=== PATIENT | male | born 1970 | race Caucasian/White ===

== ENCOUNTER 2018-04-11 17:20 | Inpatient (IN) | payer MEDICAID ==
[2018-04-11] MEDS ORDERED: Sodium Chloride 0.9% 1,000 ML IV ONE (17:49)
--- NOTE | 2018-04-11 17:50 | C.PDOC ---
Time Seen by Provider: 04/11/18 17:42 Chief Complaint (Nursing): Abnormal Skin Integrity Past Medical History Vital Signs: Last Vital Signs Temp 97.5 F L 04/11/18 17:44 Pulse 134 H 04/11/18 17:44 Resp 20 04/11/18 17:44 BP 91/59 L 04/11/18 17:44 Pulse Ox 100 04/11/18 17:44 - Medical History PMH: Fractures (left lower extremity.) Denies: Chronic Kidney Disease - [facility] Procedures CENTRAL VENOUS CATHETER PLACEMENT WITH GUIDANCE (04/13/14) INJECT/INFUSE NEC (04/09/14) TETANUS TOXOID ADMINIST (04/03/14) Family History: States: Unknown Family Hx - Social History Hx Tobacco Use: No Hx Alcohol Use: No Hx Substance Use: No - Immunization History Hx Tetanus Toxoid Vaccination: No Hx Influenza Vaccination: No Hx Pneumococcal Vaccination: No ED Course And Treatment O2 Sat by Pulse Oximetry: 100 Disposition - Disposition
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
[2018-04-11] MEDS ORDERED: Vancomycin 1 gm/NS 200 ml 1 GM/200 ML BAG IVPB STA (18:02)
[2018-04-11] MEDS ORDERED: Aztreonam 2 GM in Sodium Chloride 0.9% 100 ML IVPB STA (18:08)
[2018-04-11] MEDS ORDERED: Morphine 4 MG/ML VIAL ONE (19:27)
[2018-04-11 19:39] LABS: BASO % 0.2 % (0.0-2.0); HEMOGLOBIN 7.4 g/dL (12.0-18.0); LYMPH % 5.9 % (20.0-40.0); MEAN CELL VOLUME 75.5 fL (80.0-94.0); MEAN CORPUSCULAR HEMOGLOBIN 23.5 pg (27.0-31.0); MEAN CORPUSCULAR HGB CONC 31.1 g/dL (33.0-37.0); MEAN PLATELET VOLUME 6.2 fL (7.2-11.7); MONO # 1.1 K/uL (0.0-0.8); MONO % 6.4 % (0.0-10.0); NEUT # 14.5 K/uL (1.8-7.0); NEUT % 87.5 % (50.0-75.0); NRBC % 0.1 % (0.0-2.0); PLATELET COUNT 494 K/uL (130-400); RBC 3.15 Mil/uL (4.40-5.90); RED CELL DISTRIBUTION WIDTH 22.4 % (11.5-14.5); WHITE BLOOD COUNT 16.5 K/uL (4.8-10.8)
[2018-04-11 19:47] LABS: INR 1.6; PROTHROMBIN TIME 17.2 SECONDS (9.7-12.2)
[2018-04-11 19:48] LABS: VENOUS BLOOD GAS BASE EXCESS -13.5 mmol/L (0.0-2.0); VENOUS BLOOD GAS PCO2 18 mmHg (40-60); VENOUS BLOOD GAS PO2 40 mm/Hg (30-55); VENOUS BLOOD PH 7.34 (7.32-7.43)
[2018-04-11] MEDS ORDERED: Lactated Ringer's 2,000 ML ONE (19:48)
[2018-04-11 19:49] LABS: ALB/GLOB RATIO 0.6 (1.0-2.1); ALBUMIN 2.2 g/dL (3.5-5.0); CALCIUM 7.1 mg/dl (8.6-10.4)
[2018-04-11 20:02] LABS: ANISOCYTOSIS MODERATE; BANDS 4 % (0-2); LYMPHOCYTE 6 % (20-40); MONOCYTE 5 % (0-10); NEUTROPHIL 85 % (50-75); PLATELET ESTIMATE SLIGHTLY INCREASED (NORMAL); POLYCHROMIC SLIGHT; ROULEAUX FORMATION MODERATE; TOTAL CELLS COUNTED 100
[2018-04-11 20:03] LABS: MICROCYTOSIS MODERATE; OVALOCYTES SLIGHT
[2018-04-11 20:42] LABS: SQUAMOUS EPITHIAL 11 /hpf (0-5); URINE BACTERIA FEW (<OCC); URINE BILIRUBIN NEGATIVE (NEGATIVE); URINE BLOOD 1+ (NEGATIVE); URINE CLARITY Turbid (Clear); URINE COLOR Amber (YELLOW); URINE GLUCOSE (UA) NORMAL (Normal); URINE LEUKOCYTE ESTERASE 3+ Leu/uL (Negative); URINE PROTEIN 2+ mg/dL (NEGATIVE); URINE UROBILINOGEN NORMAL mg/dL (0.2-1.0)
[2018-04-11] MEDS: Dextrose 5%/0.9% NS 1,000 ML IV SCH (21:00)
[2018-04-11] MEDS ORDERED: Dextrose 5%/0.9% NS 1,000 ML IV ONE (21:07)
[2018-04-11] MEDS ORDERED: Sodium Chloride 0.9% 1,000 ML ONE (21:07)
[2018-04-11 21:48] LABS: VENOUS BLOOD GAS BASE EXCESS -10.1 mmol/L (0.0-2.0); VENOUS BLOOD GAS PCO2 26 mmHg (40-60); VENOUS BLOOD GAS PO2 39 mm/Hg (30-55); VENOUS BLOOD PH 7.34 (7.32-7.43)
[2018-04-11] MEDS: HYDROmorphone 1 mg/ml ISec IVP PRN (23:13)
[2018-04-12] MEDS: Dextrose 5%/0.9% NS 1,000 ML IV SCH ×3 (05:07→21:13)
[2018-04-12] MEDS: HYDROmorphone 1 mg/ml ISec IVP PRN ×3 (07:44→23:34)
[2018-04-12 14:14] LABS: MEAN CELL VOLUME 76.4 fL (80.0-94.0); MONO # 0.7 K/uL (0.0-0.8)
[2018-04-12 14:27] LABS: BLOOD UREA NITROGEN 34 mg/dL (9-20); GFR AFRICAN-AMERICAN > 60; GFR NON-AFRICAN AMERICAN 51
[2018-04-12 14:35] LABS: BASO % 0.1 % (0.0-2.0); EOS # 0.1 K/uL (0.0-0.7); EOS % 0.6 % (0.0-4.0); LYMPH % 10.6 % (20.0-40.0); MEAN CORPUSCULAR HGB CONC 31.4 g/dL (33.0-37.0); MEAN PLATELET VOLUME 6.3 fL (7.2-11.7); MONO % 8.1 % (0.0-10.0); NEUT # 7.3 K/uL (1.8-7.0); NEUT % 80.6 % (50.0-75.0); RBC 2.57 Mil/uL (4.40-5.90); RED CELL DISTRIBUTION WIDTH 22.4 % (11.5-14.5)
[2018-04-12 14:38] LABS: HEMOGLOBIN 6.2 g/dL (12.0-18.0)
--- NOTE | 2018-04-12 16:25 | RAD ---
HISTORY: Sepsis Patient COMPARISON: Comparison made with chest radiograph dated the 04/11/2018 No prior. FINDINGS: Interval placement right IJ central venous line with tip in the apparently in the right atrium LUNGS: Low lung volumes with mild crowded bronchovascular markings and minor the bibasilar atelectasis [id number] elevation right hemidiaphragm could be due to eventration. PLEURA: No significant pleural effusion identified, no pneumothorax apparent. CARDIOVASCULAR: Normal. OSSEOUS STRUCTURES: No significant abnormalities. VISUALIZED UPPER ABDOMEN: Normal. OTHER FINDINGS: None. IMPRESSION: Low lung volumes with mild crowded bronchovascular markings and minor the bibasilar atelectasis [id number] elevation right hemidiaphragm could be due to eventration. . Right IJ central venous line with tip in the right atrium
--- NOTE | 2018-04-12 16:29 | RAD ---
HISTORY: Sepsis Patient COMPARISON: No prior. FINDINGS: LUNGS: Low lung volumes with mild crowded bronchovascular markings and minor the bibasilar atelectasis [id number] elevation right hemidiaphragm could be due to eventration. PLEURA: No significant pleural effusion identified, no pneumothorax apparent. CARDIOVASCULAR: Normal. OSSEOUS STRUCTURES: No significant abnormalities. VISUALIZED UPPER ABDOMEN: Normal. OTHER FINDINGS: None. IMPRESSION: Low lung volumes with mild crowded bronchovascular markings and minor the bibasilar atelectasis Zegp-vw-[id number] elevation right hemidiaphragm could be due to eventration.
[2018-04-12] MEDS ORDERED: DiphenhydrAMINE 50 mg/ml Inj IVP STA (19:42)
[2018-04-13] MEDS ORDERED: DiphenhydrAMINE 50 mg/ml Inj IVP STA ×2 (01:43→03:03)
[2018-04-13] MEDS: HYDROmorphone 1 mg/ml ISec IVP PRN ×5 (05:38→21:53)
[2018-04-13] MEDS: Dextrose 5%/0.9% NS 1,000 ML IV SCH ×3 (06:00→22:01)
[2018-04-13 11:13] LABS: BASO % 0.1 % (0.0-2.0); EOS # 0.1 K/uL (0.0-0.7); EOS % 0.4 % (0.0-4.0); LYMPH # 0.8 K/uL (1.0-4.3); MEAN CORPUSCULAR HEMOGLOBIN 25.9 pg (27.0-31.0); MEAN CORPUSCULAR HGB CONC 32.8 g/dL (33.0-37.0); MONO # 0.8 K/uL (0.0-0.8); MONO % 6.7 % (0.0-10.0); NEUT # 10.2 K/uL (1.8-7.0); NEUT % 85.8 % (50.0-75.0); PLATELET COUNT 402 K/uL (130-400); RBC 3.25 Mil/uL (4.40-5.90); RED CELL DISTRIBUTION WIDTH 21.2 % (11.5-14.5); WHITE BLOOD COUNT 11.9 K/uL (4.8-10.8)
[2018-04-13 11:35] LABS: HEMOGLOBIN 8.4 g/dL (12.0-18.0); MEAN CELL VOLUME 78.9 fL (80.0-94.0)
[2018-04-13 12:24] LABS: BANDS 8 % (0-2); EOSINOPHIL 1 % (0-4); LYMPHOCYTE 6 % (20-40); MONOCYTE 8 % (0-10); MYELOCYTE 1 % (0-0); NEUTROPHIL 76 % (50-75); PLATELET ESTIMATE NORMAL (NORMAL); TOTAL CELLS COUNTED 100
[2018-04-13 12:25] LABS: ANISOCYTOSIS MODERATE; HYPOCHROMIC SLIGHT; MICROCYTOSIS SLIGHT; OVALOCYTES SLIGHT; POIKILOCYTOSIS SLIGHT; POLYCHROMIC SLIGHT
[2018-04-13 12:26] LABS: SPHEROCYTES SLIGHT; TEARDROP CELLS SLIGHT
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
[2018-04-14] MEDS: HYDROmorphone 1 mg/ml ISec IVP PRN ×5 (02:03→22:03)
[2018-04-14] MEDS: Dextrose 5%/0.9% NS 1,000 ML IV SCH ×4 (02:32→22:05)
[2018-04-14 07:32] LABS: BASO % 0.1 % (0.0-2.0); EOS # 0.1 K/uL (0.0-0.7); EOS % 1.1 % (0.0-4.0); HEMOGLOBIN 7.8 g/dL (12.0-18.0); LYMPH # 1.4 K/uL (1.0-4.3); LYMPH % 10.7 % (20.0-40.0); MEAN CELL VOLUME 78.7 fL (80.0-94.0); MEAN CORPUSCULAR HEMOGLOBIN 25.6 pg (27.0-31.0); MEAN CORPUSCULAR HGB CONC 32.5 g/dL (33.0-37.0); MEAN PLATELET VOLUME 6.1 fL (7.2-11.7); MONO % 7.8 % (0.0-10.0); NEUT # 10.2 K/uL (1.8-7.0); NEUT % 80.3 % (50.0-75.0); RBC 3.04 Mil/uL (4.40-5.90); WHITE BLOOD COUNT 12.7 K/uL (4.8-10.8)
--- NOTE | 2018-04-14 12:59 | CP.PCM.PN ---
Subjective - Date & Time of Evaluation Date of Evaluation: 04/14/18 Time of Evaluation: 09:00 - Subjective Subjective: MDRO'S FROM WOUND BLOOD C/S + NEEDS CT SACRUM RECC DEBRIDEMENT, CONSIDER COLOSTOMY, TYGACIL ADDED MAY EED ROMARIO Objective - Vital Signs/Intake and Output Vital Signs (last 24 hours): Temp Pulse Resp BP Pulse Ox 99.1 F 109 H 20 86/50 L 96 04/14/18 08:15 04/14/18 08:15 04/14/18 08:15 04/14/18 08:15 04/14/18 08:15 Intake and Output: 04/14/18 04/14/18 06:59 18:59 Intake Total 1600 Output Total 1400 Balance 200 - Medications Medications: Current Medications Heparin Sodium (Porcine) (Heparin) 5,000 units SC Q12H [facility] Last Admin: 04/14/18 10:22 Dose: Not Given Hydromorphone HCl (Dilaudid) 2 mg IVP Q4H PRN PRN Reason: Pain, moderate (4-7) Last Admin: 04/14/18 10:31 Dose: 2 mg Dextrose/Sodium Chloride (Dextrose 5%/0.9% Ns 1000 Ml) 1,000 mls @ 125 mls/hr IV .Q8H [facility] Last Admin: 04/14/18 05:17 Dose: Not Given Aztreonam 500 mg/ Sodium (Chloride) 50 mls @ 100 mls/hr IVPB Q8H [facility] PRN Reason: Protocol Last Admin: 04/14/18 05:18 Dose: 100 mls/hr Tigecycline 100 mg/ Sodium (Chloride) 100 mls @ 100 mls/hr IVPB ONCE ONE PRN Reason: Protocol Stop: 04/14/18 13:59 Tigecycline 50 mg/ Sodium (Chloride) 100 mls @ 100 mls/hr IVPB Q12H [facility] PRN Reason: Protocol - Labs Labs: 04/14/18 07:00 04/12/18 14:12 PT 17.2 SECONDS (9.7-12.2) H 04/11/18 19:30 INR 1.6 04/11/18 19:30 APTT 38 SECONDS (21-34) H 04/12/18 07:58 - Constitutional Appears: Non-toxic, Chronically Ill - Head Exam Head Exam: NORMOCEPHALIC - Eye Exam Eye Exam: PERRL - ENT Exam ENT Exam: Mucous Membranes Dry - Neck Exam Neck Exam: absent: Lymphadenopathy - Respiratory Exam Respiratory Exam: Decreased Breath Sounds - Cardiovascular Exam Cardiovascular Exam: REGULAR RHYTHM - GI/Abdominal Exam GI & Abdominal Exam: Distended, Soft Assessment and Plan (1) Sacral decubitus ulcer, stage IV Status: Acute (2) Cellulitis Status: Acute (3) UTI (urinary tract infection) Status: Acute (4) UTI (urinary tract infection) Status: Acute (5) Sepsis affecting skin Status: Acute (6) Sepsis affecting skin Status: Acute - Assessment and Plan (Free Text) Plan: MDRO'S FROM WOUND NEEDS CT SACRUM RECC DEBRIDEMENT, CONSIDER COLOSTOMY, TYGACIL ADDED MAY EED ROMARIO
[2018-04-14] MEDS ORDERED: Midazolam 2 MG/2 ML VIAL ONE (14:32)
[2018-04-14] MEDS ORDERED: Propofol 10 mg/ml Inj (20 ML) ONE (14:33)
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
--- NOTE | 2018-04-14 16:02 | CARD ---
APPROVED REPORT EKG Measurement Heart [id number] MI [id number] <Conclusion> Sinus tachycardia Incomplete right bundle branch block Borderline ECG
[2018-04-14] MEDS ORDERED: HYDROmorphone 0.5 mg/0.5 ml ISec IVP PRN (16:13)
[2018-04-15] MEDS: HYDROmorphone 1 mg/ml ISec IVP PRN ×6 (02:47→22:17)
[2018-04-15] MEDS: Dextrose 5%/0.9% NS 1,000 ML IV SCH ×3 (02:48→10:08)
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
[2018-04-15 07:28] LABS: BASO % 0.1 % (0.0-2.0); EOS # 0.1 K/uL (0.0-0.7); EOS % 0.8 % (0.0-4.0); HEMOGLOBIN 7.6 g/dL (12.0-18.0); LYMPH # 0.9 K/uL (1.0-4.3); LYMPH % 7.4 % (20.0-40.0); MEAN CELL VOLUME 78.6 fL (80.0-94.0); MEAN CORPUSCULAR HEMOGLOBIN 25.8 pg (27.0-31.0); MEAN CORPUSCULAR HGB CONC 32.8 g/dL (33.0-37.0); MEAN PLATELET VOLUME 6.2 fL (7.2-11.7); MONO # 0.7 K/uL (0.0-0.8); MONO % 5.8 % (0.0-10.0); NEUT # 10.8 K/uL (1.8-7.0); NEUT % 85.9 % (50.0-75.0); PLATELET COUNT 331 K/uL (130-400); RBC 2.96 Mil/uL (4.40-5.90); RED CELL DISTRIBUTION WIDTH 20.7 % (11.5-14.5); WHITE BLOOD COUNT 12.6 K/uL (4.8-10.8)
--- NOTE | 2018-04-15 07:38 | CP.PCM.PN ---
Subjective - Date & Time of Evaluation Date of Evaluation: 04/15/18 Time of Evaluation: 07:37 - Subjective Subjective: PGY2 Medicine Note for Dr. Nieves Patient seen and examined this morning at bedside. Upon walking into the room, the patient was sleeping. The patient was awoken easily. Once awake, he was very upset stating that his pain is not well controlled. He began tearing up requesting that his dilaudid be increased from 2mg every 4 hours to 3mg every 4 hours. "I used to get 4 mg every 4 hours. I have serious problems. I need more pain medicine." He then threatened to leave against medical advice if he does not get more pain medicine. He would not answer any questions unless he got more pain medicine. Objective - Vital Signs/Intake and Output Vital Signs (last 24 hours): Temp Pulse Resp BP Pulse Ox 98 F 82 20 100/65 99 04/15/18 05:12 04/15/18 05:12 04/15/18 05:12 04/15/18 05:12 04/15/18 05:12 Intake and Output: 04/15/18 04/15/18 06:59 18:59 Intake Total 1750 Output Total 750 Balance 1000 - Medications Medications: Current Medications Heparin Sodium (Porcine) (Heparin) 5,000 units SC Q12H [facility] Last Admin: 04/14/18 21:17 Dose: Not Given Hydromorphone HCl (Dilaudid) 2 mg IVP Q4H PRN PRN Reason: Pain, moderate (4-7) Last Admin: 04/15/18 06:31 Dose: 2 mg Dextrose/Sodium Chloride (Dextrose 5%/0.9% Ns 1000 Ml) 1,000 mls @ 125 mls/hr IV .Q8H [facility] Last Admin: 04/15/18 05:15 Dose: Not Given Aztreonam 500 mg/ Sodium (Chloride) 50 mls @ 100 mls/hr IVPB Q8H [facility] PRN Reason: Protocol Last Admin: 04/15/18 05:22 Dose: 100 mls/hr Tigecycline 50 mg/ Sodium (Chloride) 100 mls @ 100 mls/hr IVPB Q12H [facility] PRN Reason: Protocol Last Admin: 04/15/18 00:19 Dose: 100 mls/hr - Labs Labs: 04/15/18 07:30 04/12/18 14:12 PT 17.2 SECONDS (9.7-12.2) H 04/11/18 19:30 INR 1.6 04/11/18 19:30 APTT 38 SECONDS (21-34) H 04/12/18 07:58 - Constitutional Appears: No Acute Distress - Head Exam Head Exam: ATRAUMATIC - Eye Exam Eye Exam: Normal appearance - ENT Exam ENT Exam: Mucous Membranes Moist - Neck Exam Neck Exam: absent: Lymphadenopathy - Respiratory Exam Respiratory Exam: Decreased Breath Sounds, NORMAL BREATHING PATTERN. absent: Accessory Muscle Use, Rales, Rhonchi, Wheezes, Respiratory Distress - Cardiovascular Exam Cardiovascular Exam: Tachycardia (~110 on telemetry), +S1, +S2 - GI/Abdominal Exam GI & Abdominal Exam: Soft. absent: Distended, Firm, Guarding, Rigid, Tenderness Additional comments: colostomy bag in place - Extremities Exam Extremities Exam: absent: Calf Tenderness Additional comments: Left leg AKA - Back Exam Additional comments: Dressing in place over buttock/lower right back. - Neurological Exam Neurological Exam: Alert, Awake, CN II-XII Intact, Oriented x3 - Psychiatric Exam Psychiatric exam: Agitated Additional comments: tearing up while requesting more pain medicine. - Skin Skin Exam: Dry, Warm Assessment and Plan - Assessment and Plan (Free Text) Plan: Sepsis 2/2 Sacral Decubitus Ulcer ID Consulted, Dr. Varghese * abx per ID * Azreonam 500mg IVPB q8h (started on 04/12) * Tigecycline 50mg IVPB (started on 04/14) * Tobramycin 60mg IV q8h (started on 04/15) Surgery Consulted, Dr. Kim * Scheduled for debridement this afternoon CXR 04/11: Low lung volumes with mild crowded bronchovascular markings and minor bibasilar atelectasis. [id number] elevation of right hemidiaphragm could be due to eventration. Right IJ central venous line with tip in the right atrium. Sacral Wound Culture 04/11: grew 4 bacteria * E. Coli * Klebsiella Pneumoniae Ssp Pneu - ESBL * MRSA * Group G Strep Urine Culture 04/11: grew 2 bacteria * E. Coli * Beta hemolytic Strep group B Blood Cultures 04/12: Culture #1 * Acinetobacter Baumannii * Group G Strep Culture #2 * Acinetobacter Baumannii * Gram Positive Cocci * Group G Strep Wound Culture from OR 04/14: * Gram Neg Jean-Paul * Gram Neg Jean-Paul #2 Procal (04/14): 17.24 Lactic Acid (04/12): 1.6 Meds: * Azreonam 500mg IVPB q8h (started on 04/12) * Tigecycline 50mg IVPB q12h (started on 04/14) * Tobramycin 60mg IV q8h (started on 04/15) * Dilaudid 2mg IVP q4h prn * Patient was informed that he is not getting his pain medicine increased. He got very upset and demanded that Dr. Nieves be called and asked a second time for an increase in medication. Dr. Nieves stated that he does not want to increase any pain medicine at this time. * D5/NS @125mL/hr - decreased to 75mL/hr due to large amounts of electrolytes being repleted Anemia Upon admission 7.4 Dropped to 6.2 on 04/12 - transfused 2units of pRBCs Downtrending to 7.6 on 04/15 * transfuse one unit of pRBCs Continue to monitor Hypokalemia K+ 1.9 Repleted with 40meq orally and 100meq IV Continue to monitor Hypomagnesmia Mag 1.2 Repleted with 2 gm Continue to monitor Prophylactic Care Heparin 5,000units SC q12h Case discussed with Dr. Nieves All medical management per Dr. Lizbeth Nortonn PGY2
[2018-04-15 08:10] LABS: ALB/GLOB RATIO 0.5 (1.0-2.1); ALBUMIN 1.6 g/dL (3.5-5.0); ALT/SGPT 23 U/L (21-72); AST/SGOT 22 U/L (17-59); BLOOD UREA NITROGEN 17 mg/dL (9-20); CALCIUM 6.2 mg/dl (8.6-10.4); GFR AFRICAN-AMERICAN > 60; GFR NON-AFRICAN AMERICAN > 60
[2018-04-15 09:54] LABS: ALB/GLOB RATIO 0.5 (1.0-2.1); ALBUMIN 1.5 g/dL (3.5-5.0); ALT/SGPT 23 U/L (21-72); AST/SGOT 18 U/L (17-59); BLOOD UREA NITROGEN 16 mg/dL (9-20); CALCIUM 6.2 mg/dl (8.6-10.4); GFR AFRICAN-AMERICAN > 60; GFR NON-AFRICAN AMERICAN > 60
[2018-04-15 10:07] LABS: ANISOCYTOSIS MODERATE; BANDS 5 % (0-2); EOSINOPHIL 1 % (0-4); LYMPHOCYTE 6 % (20-40); MONOCYTE 3 % (0-10); NEUTROPHIL 85 % (50-75); PLATELET ESTIMATE NORMAL (NORMAL); TOTAL CELLS COUNTED 100
[2018-04-15 10:15] LABS: HYPOCHROMIC MODERATE
--- NOTE | 2018-04-15 10:43 | CP.PCM.PN ---
Subjective - Date & Time of Evaluation Date of Evaluation: 04/15/18 Time of Evaluation: 07:00 - Subjective Subjective: acinetobacter on blood c/s iv tygacil added Objective - Vital Signs/Intake and Output Vital Signs (last 24 hours): Temp Pulse Resp BP Pulse Ox 99.0 F 115 H 20 113/73 100 04/15/18 07:50 04/15/18 07:50 04/15/18 07:50 04/15/18 07:50 04/15/18 07:50 Intake and Output: 04/15/18 04/15/18 06:59 18:59 Intake Total 1750 Output Total 750 Balance 1000 - Medications Medications: Current Medications Heparin Sodium (Porcine) (Heparin) 5,000 units SC Q12H [facility] Last Admin: 04/15/18 10:03 Dose: Not Given Hydromorphone HCl (Dilaudid) 2 mg IVP Q4H PRN PRN Reason: Pain, moderate (4-7) Last Admin: 04/15/18 09:58 Dose: 2 mg Dextrose/Sodium Chloride (Dextrose 5%/0.9% Ns 1000 Ml) 1,000 mls @ 125 mls/hr IV .Q8H [facility] Last Admin: 04/15/18 10:08 Dose: 125 mls/hr Aztreonam 500 mg/ Sodium (Chloride) 50 mls @ 100 mls/hr IVPB Q8H [facility] PRN Reason: Protocol Last Admin: 04/15/18 05:22 Dose: 100 mls/hr Tigecycline 50 mg/ Sodium (Chloride) 100 mls @ 100 mls/hr IVPB Q12H [facility] PRN Reason: Protocol Last Admin: 04/15/18 00:19 Dose: 100 mls/hr Potassium Chloride (Potassium Chloride 20 Meq/100 Ml) 20 meq in 100 mls @ 50 mls/hr IVPB ONCE ONE Stop: 04/15/18 11:59 Last Admin: 04/15/18 10:02 Dose: 50 mls/hr Potassium Chloride (Potassium Chloride 20 Meq/100 Ml) 20 meq in 100 mls @ 50 mls/hr IVPB Q2H [facility] Stop: 04/15/18 19:59 - Labs Labs: 04/15/18 07:30 04/15/18 08:57 PT 17.2 SECONDS (9.7-12.2) H 04/11/18 19:30 INR 1.6 04/11/18 19:30 APTT 38 SECONDS (21-34) H 04/12/18 07:58 - Constitutional Appears: Non-toxic - Head Exam Head Exam: NORMOCEPHALIC - Eye Exam Eye Exam: PERRL - ENT Exam ENT Exam: Mucous Membranes Dry - Neck Exam Neck Exam: absent: Lymphadenopathy - Respiratory Exam Respiratory Exam: Decreased Breath Sounds - Cardiovascular Exam Cardiovascular Exam: REGULAR RHYTHM - GI/Abdominal Exam GI & Abdominal Exam: Distended - Rectal Exam Rectal Exam: Deferred Assessment and Plan (1) Sacral decubitus ulcer, stage IV Status: Acute (2) Cellulitis Status: Acute (3) UTI (urinary tract infection) Status: Acute (4) UTI (urinary tract infection) Status: Acute (5) Sepsis affecting skin Status: Acute (6) Sepsis affecting skin Status: Acute
[2018-04-15] MEDS ORDERED: Potassium Chloride 20 mEq ER Tab PO STA ×2 (11:00→12:14)
[2018-04-15 14:49] LABS: CALCIUM 6.2 mg/dl (8.6-10.4)
[2018-04-15 14:59] LABS: BLOOD UREA NITROGEN 15 mg/dL (9-20); GFR AFRICAN-AMERICAN > 60; GFR NON-AFRICAN AMERICAN > 60
[2018-04-15] MEDS ORDERED: Potassium Chloride 20 mEq 100 ML IV ONE (15:15)
[2018-04-15] MEDS ORDERED: Midazolam 2 MG/2 ML VIAL ONE (15:20)
[2018-04-15] MEDS ORDERED: Propofol 10 mg/ml Inj (20 ML) ONE (15:20)
[2018-04-15] MEDS: Tobramycin inj 60 MG in Sodium Chloride 0.9% 100 ML IV SCH ×2 (15:25→19:52)
[2018-04-15] MEDS: Magnesium Sulfate 1 gm in D5W 1 GM/100 ML BAG IVPB SCH ×2 (15:28→16:29)
[2018-04-15] MEDS ORDERED: Vancomycin 1 gm/D5W 200 ml 1 GM/200 ML BAG IVPB ONE (15:55)
[2018-04-15] MEDS ORDERED: HYDROmorphone 0.5 mg/0.5 ml ISec IVP PRN (16:15)
[2018-04-16] MEDS: Dextrose 5%/0.9% NS 1,000 ML IV SCH ×2 (01:08→10:48)
[2018-04-16] MEDS: HYDROmorphone 1 mg/ml ISec IVP PRN ×5 (02:44→21:34)
--- NOTE | 2018-04-16 03:19 | OP ---
PROCEDURE DATE: 04/15/2018 PREOPERATIVE DIAGNOSIS: Extensive soft tissue necrosis and decubitus, sacral and buttock area. POSTOPERATIVE DIAGNOSIS: Extensive soft tissue necrosis and decubitus, sacral and buttock area. PROCEDURES PERFORMED: 1. Incision and drainage of osteomyelitis. 2. Excision of sacral polyp. 3. Extensive debridement of open wound, back, sacral, and buttock area. SURGEON: Prasanth Kim MD ANESTHESIA: General. BLOOD LOSS: 40 mL. POSTOPERATIVE CONDITION: Stable. DESCRIPTION OF PROCEDURE: The patient was taken back to the operating room for staged procedure. He has a large open posterior wound which is infected. Today, he underwent further debridement. Sacral polyps were removed as well as incision and drainage of a new area of osteomyelitis. Bone biopsies were taken. The wound was pulse irrigated and then packed with saline gauze. The patient tolerated the procedure well and returned to recovery room in stable condition. Prasanth Kim MD
[2018-04-16] MEDS: Tobramycin inj 60 MG in Sodium Chloride 0.9% 100 ML IV SCH ×4 (04:03→19:10)
--- NOTE | 2018-04-16 07:04 | CP.PCM.PN ---
Subjective - Date & Time of Evaluation Date of Evaluation: 04/16/18 Time of Evaluation: 07:04 - Subjective Subjective: PGY2 Medicine Note for Dr. Nieves Patient seen and examined at bedside this morning. Patient requested sleeping medicine last night as he was having difficulty falling asleep. Patient is still upset about not getting an increase in his pain medicine. He refused some of his potassium supplementation yesterday. He is stating that he wants an increase in his pain medicine again. He is currently NPO for surgery this afternoon. Objective - Vital Signs/Intake and Output Vital Signs (last 24 hours): Temp Pulse Resp BP Pulse Ox 98.1 F 80 20 102/60 98 04/15/18 23:30 04/15/18 23:30 04/15/18 23:30 04/15/18 23:30 04/15/18 23:30 Intake and Output: 04/16/18 04/16/18 06:59 18:59 Intake Total 840 Balance 840 - Medications Medications: Current Medications Heparin Sodium (Porcine) (Heparin) 5,000 units SC Q12H [facility] Last Admin: 04/15/18 22:10 Dose: Not Given Hydromorphone HCl (Dilaudid) 2 mg IVP Q4H PRN PRN Reason: Pain, moderate (4-7) Last Admin: 04/16/18 07:01 Dose: 2 mg Aztreonam 500 mg/ Sodium (Chloride) 50 mls @ 100 mls/hr IVPB Q8H [facility] PRN Reason: Protocol Last Admin: 04/16/18 05:30 Dose: 100 mls/hr Tigecycline 50 mg/ Sodium (Chloride) 100 mls @ 100 mls/hr IVPB Q12H [facility] PRN Reason: Protocol Last Admin: 04/16/18 01:15 Dose: 100 mls/hr Tobramycin Sulfate 60 mg/ (Sodium Chloride) 101.5 mls @ 101.5 mls/hr IV Q8H [facility] PRN Reason: Protocol Last Admin: 04/16/18 04:03 Dose: 101.5 mls/hr Dextrose/Sodium Chloride (Dextrose 5%/0.9% Ns 1000 Ml) 1,000 mls @ 75 mls/hr IV .[id number] [facility] Last Admin: 04/16/18 01:08 Dose: Not Given Zolpidem Tartrate (Ambien) 5 mg PO HS PRN PRN Reason: Insomnia Last Admin: 04/15/18 22:52 Dose: 5 mg - Labs Labs: 04/15/18 07:30 04/15/18 13:58 PT 17.2 SECONDS (9.7-12.2) H 04/11/18 19:30 INR 1.6 04/11/18 19:30 APTT 38 SECONDS (21-34) H 04/12/18 07:58 Assessment and Plan - Assessment and Plan (Free Text) Plan: - Constitutional Appears: No Acute Distress - Head Exam Head Exam: ATRAUMATIC - Eye Exam Eye Exam: Normal appearance - ENT Exam ENT Exam: Mucous Membranes Moist - Neck Exam Neck Exam: absent: Lymphadenopathy - Respiratory Exam Respiratory Exam: Decreased Breath Sounds, NORMAL BREATHING PATTERN. absent: Accessory Muscle Use, Rales, Rhonchi, Wheezes, Respiratory Distress - Cardiovascular Exam Cardiovascular Exam: Tachycardia (~110 on telemetry), +S1, +S2 - GI/Abdominal Exam GI & Abdominal Exam: Soft. absent: Distended, Firm, Guarding, Rigid, Tenderness Additional comments: colostomy bag in place - Extremities Exam Extremities Exam: absent: Calf Tenderness Additional comments: Left leg AKA - Back Exam Additional comments: Dressing in place over buttock/lower right back. - Neurological Exam Neurological Exam: Alert, Awake, CN II-XII Intact, Oriented x3 - Psychiatric Exam Psychiatric exam: Depressed Additional comments: Requesting more pain medicine. "I have real problems. Test me for heroin, I don' t do it anymore." - Skin Skin Exam: Dry, Warm Assessment and Plan - Assessment and Plan (Free Text) Plan: Sepsis 2/2 Sacral Decubitus Ulcer ID Consulted, Dr. Varghese * abx per ID * Azreonam 500mg IVPB q8h (started on 04/12) * Tigecycline 50mg IVPB (started on 04/14) * Tobramycin 60mg IV q8h (started on 04/15) Surgery Consulted, Dr. Kim * Scheduled for debridement this afternoon CXR 04/11: Low lung volumes with mild crowded bronchovascular markings and minor bibasilar atelectasis. Bozd-va-[id number] elevation of right hemidiaphragm could be due to eventration. Right IJ central venous line with tip in the right atrium. Sacral Wound Culture 04/11: grew 4 bacteria * E. Coli * Klebsiella Pneumoniae Ssp Pneu - ESBL * MRSA * Group G Strep Urine Culture 04/11: grew 2 bacteria * E. Coli * Beta hemolytic Strep group B Blood Cultures 04/12: Culture #1 * Acinetobacter Baumannii * Group G Strep Culture #2 * Acinetobacter Baumannii * Gram Positive Cocci --> most likely contamination * Group G Strep Wound Culture from OR 04/14: * Klebsiella Pneumoniae Ssp Pneu - ESBL * Proteus Mirabilis Wound Culture from OR 04/15: * Gram Neg Jean-Paul Procal (04/14): 17.24 Lactic Acid (04/12): 1.6 Meds: * Azreonam 500mg IVPB q8h (started on 04/12) * Tigecycline 50mg IVPB q12h (started on 04/14) * Tobramycin 60mg IV q8h (started on 04/15) * Dilaudid 2mg IVP q4h prn * Patient was informed that he is not getting his pain medicine increased. He got very upset and demanded that Dr. Nieves be called and asked a second time for an increase in medication. Dr. Nieves stated that he does not want to increase any pain medicine at this time. * D5/NS @75mL/hr Anemia Upon admission 7.4 Appropriate response, Hgb today 9.0 * s/p transfusion of one unit of pRBCs on 04/15 * transfused 2units of pRBCs on 04/12 Continue to monitor Hypokalemia K+ 3.0 Repleted Continue to monitor Prophylactic Care Heparin 5,000units SC q12h Started on Ambien 5mg PO HS prn Case discussed with Dr. Nieves All medical management per Dr. Lizbeth Johnson Carito PGY2
[2018-04-16 08:56] LABS: BASO % 0.1 % (0.0-2.0); EOS # 0.1 K/uL (0.0-0.7); EOS % 1.1 % (0.0-4.0); LYMPH # 1.5 K/uL (1.0-4.3); LYMPH % 12.4 % (20.0-40.0); MEAN CORPUSCULAR HEMOGLOBIN 27.2 pg (27.0-31.0); MEAN CORPUSCULAR HGB CONC 33.9 g/dL (33.0-37.0); MEAN PLATELET VOLUME 6.1 fL (7.2-11.7); MONO # 0.8 K/uL (0.0-0.8); MONO % 6.3 % (0.0-10.0); NEUT # 9.9 K/uL (1.8-7.0); NEUT % 80.1 % (50.0-75.0); NRBC % 0.1 % (0.0-2.0); RBC 3.33 Mil/uL (4.40-5.90); RED CELL DISTRIBUTION WIDTH 20.3 % (11.5-14.5); WHITE BLOOD COUNT 12.3 K/uL (4.8-10.8)
[2018-04-16 09:14] LABS: ALB/GLOB RATIO 0.5 (1.0-2.1); ALBUMIN 1.7 g/dL (3.5-5.0); ALT/SGPT 25 U/L (21-72); AST/SGOT 17 U/L (17-59); BLOOD UREA NITROGEN 13 mg/dL (9-20); CALCIUM 6.1 mg/dl (8.6-10.4); GFR AFRICAN-AMERICAN > 60; GFR NON-AFRICAN AMERICAN > 60
[2018-04-16] MEDS ORDERED: Potassium Chloride 20 mEq ER Tab PO STA (13:21)
[2018-04-16] MEDS ORDERED: Midazolam 2 MG/2 ML VIAL ONE (13:22)
[2018-04-16] MEDS ORDERED: Propofol 10 mg/ml Inj (20 ML) ONE (13:22)
[2018-04-16] MEDS ORDERED: Phenylephrine 10 mg/ml Inj ONE (13:58)
--- NOTE | 2018-04-16 15:21 | CP.PCM.PN ---
Subjective - Date & Time of Evaluation Date of Evaluation: 04/16/18 Time of Evaluation: 10:00 - Subjective Subjective: HAS MDRO ACINETOBACTER IN BLOOD IV RX IN PROGRESS FOR DEBRIDEMENT Objective - Vital Signs/Intake and Output Vital Signs (last 24 hours): Temp Pulse Resp BP Pulse Ox 96.9 F L 75 12 96/50 L 97 04/16/18 14:40 04/16/18 15:15 04/16/18 15:15 04/16/18 15:15 04/16/18 15:15 Intake and Output: 04/16/18 04/16/18 06:59 18:59 Intake Total 840 1275 Output Total 350 Balance 840 925 - Medications Medications: Current Medications Heparin Sodium (Porcine) (Heparin) 5,000 units SC Q12H [facility] Last Admin: 04/16/18 10:47 Dose: Not Given Hydromorphone HCl (Dilaudid) 2 mg IVP Q4H PRN PRN Reason: Pain, moderate (4-7) Last Admin: 04/16/18 10:35 Dose: 2 mg Hydromorphone HCl (Dilaudid) 0.5 mg IVP Q10M PRN PRN Reason: Pain, moderate (4-7) Stop: 04/16/18 16:39 Aztreonam 500 mg/ Sodium (Chloride) 50 mls @ 100 mls/hr IVPB Q8H [facility] PRN Reason: Protocol Last Admin: 04/16/18 12:14 Dose: 100 mls/hr Tigecycline 50 mg/ Sodium (Chloride) 100 mls @ 100 mls/hr IVPB Q12H [facility] PRN Reason: Protocol Last Admin: 04/16/18 13:50 Dose: 100 mls Tobramycin Sulfate 60 mg/ (Sodium Chloride) 101.5 mls @ 101.5 mls/hr IV Q8H [facility] PRN Reason: Protocol Last Admin: 04/16/18 10:42 Dose: 101.5 mls/hr Dextrose/Sodium Chloride (Dextrose 5%/0.9% Ns 1000 Ml) 1,000 mls @ 75 mls/hr IV .[id number] [facility] Last Admin: 04/16/18 10:48 Dose: 75 mls/hr Ondansetron HCl (Zofran Inj) 4 mg IVP ONCE PRN PRN Reason: Nausea/Vomiting Stop: 04/16/18 16:40 Zolpidem Tartrate (Ambien) 5 mg PO HS PRN PRN Reason: Insomnia Last Admin: 04/15/18 22:52 Dose: 5 mg - Labs Labs: 04/16/18 08:39 04/16/18 08:39 PT 17.2 SECONDS (9.7-12.2) H 04/11/18 19:30 INR 1.6 04/11/18 19:30 APTT 38 SECONDS (21-34) H 04/12/18 07:58 - Constitutional Appears: Non-toxic, Chronically Ill - Head Exam Head Exam: NORMOCEPHALIC - Eye Exam Eye Exam: absent: Scleral icterus - ENT Exam ENT Exam: Mucous Membranes Dry - Neck Exam Neck Exam: absent: Lymphadenopathy - Respiratory Exam Respiratory Exam: Decreased Breath Sounds - Cardiovascular Exam Cardiovascular Exam: REGULAR RHYTHM - GI/Abdominal Exam GI & Abdominal Exam: Distended - Rectal Exam Rectal Exam: Deferred Assessment and Plan (1) Sacral decubitus ulcer, stage IV Status: Acute (2) Cellulitis Status: Acute (3) UTI (urinary tract infection) Status: Acute (4) UTI (urinary tract infection) Status: Acute (5) Sepsis affecting skin Status: Acute (6) Sepsis affecting skin Status: Acute - Assessment and Plan (Free Text) Assessment: CONBT RX FOR OM CONSIDER CT SACRUM CONSIDER COLOSTOMY
[2018-04-16] MEDS: HYDROmorphone 0.5 mg/0.5 ml ISec IVP PRN ×2 (15:59→17:46)
[2018-04-17] MEDS: HYDROmorphone 1 mg/ml ISec IVP PRN ×6 (01:13→21:35)
--- NOTE | 2018-04-17 01:51 | OP ---
PROCEDURE DATE: 04/16/2018 PREOPERATIVE DIAGNOSIS: Large open wound of the back, sacrum, and left above-knee amputation stump. POSTOPERATIVE DIAGNOSIS: Large open wound of the back, sacrum, and left above-knee amputation stump. PROCEDURES PERFORMED: Debridement, re-drainage of osteomyelitis, and pulse irrigation with change of packing under anesthesia. SURGEON: Prasanth Kim MD ANESTHESIA: General. BLOOD LOSS: 50 mL. POSTOPERATIVE CONDITION: Stable. DESCRIPTION OF PROCEDURE: This is a staged procedure. The patient was taken back, has a large open back and sacral wound with massive amount of necrotic tissue, and he is undergoing another staged debridement. He was taken to the operating room. General anesthesia was administered. In the right lateral decubitus position, he was placed. The wound was prepped and draped. Again, more necrosis was noted and the necrotic tissue was removed. The sacral osteomyelitis was re-drained along with a sacral polyp. Several sacral polyps also being removed. Collections were drained and cultured. The wound was pulse irrigated with saline and dressed sterilely. The patient tolerated the procedure well, returned to recovery room in stable condition. Prasanth Kim MD
[2018-04-17] MEDS: Tobramycin inj 60 MG in Sodium Chloride 0.9% 100 ML IV SCH (04:05)
[2018-04-17] MEDS: Dextrose 5%/0.9% NS 1,000 ML IV SCH ×3 (04:06→16:41)
[2018-04-17 04:48] LABS: BASO % 0.1 % (0.0-2.0); EOS # 0.2 K/uL (0.0-0.7); HEMOGLOBIN 7.7 g/dL (12.0-18.0); LYMPH # 1.3 K/uL (1.0-4.3); LYMPH % 13.2 % (20.0-40.0); MEAN CELL VOLUME 79.7 fL (80.0-94.0); MEAN CORPUSCULAR HEMOGLOBIN 26.7 pg (27.0-31.0); MEAN CORPUSCULAR HGB CONC 33.4 g/dL (33.0-37.0); MEAN PLATELET VOLUME 6.2 fL (7.2-11.7); MONO # 0.6 K/uL (0.0-0.8); MONO % 6.3 % (0.0-10.0); NEUT # 7.5 K/uL (1.8-7.0); NEUT % 78.4 % (50.0-75.0); NRBC % 0.1 % (0.0-2.0); RBC 2.89 Mil/uL (4.40-5.90); RED CELL DISTRIBUTION WIDTH 20.8 % (11.5-14.5); WHITE BLOOD COUNT 9.6 K/uL (4.8-10.8)
[2018-04-17 05:20] LABS: CALCIUM 5.9 mg/dl (8.6-10.4)
[2018-04-17 05:24] LABS: ALB/GLOB RATIO 0.5 (1.0-2.1); ALBUMIN 1.4 g/dL (3.5-5.0); ALT/SGPT 26 U/L (21-72); AST/SGOT 8 U/L (17-59); BLOOD UREA NITROGEN 11 mg/dL (9-20); GFR AFRICAN-AMERICAN > 60; GFR NON-AFRICAN AMERICAN > 60
[2018-04-17] MEDS ORDERED: Potassium Chloride 20 mEq ER Tab PO ONE ×2 (05:28→08:30)
--- NOTE | 2018-04-17 07:45 | CP.PCM.PN ---
Subjective - Date & Time of Evaluation Date of Evaluation: 04/17/18 Time of Evaluation: 07:44 - Subjective Subjective: PGY2 Medicine Note for Dr. Nieves Patient seen and examined this morning at bedside. Patient is very upset that he has not received an increase in his pain medicine. He has been refusing multiple different medications. He thinks that the hospital staff is not listening to him because he needs more pain medicine. He does not want to talk unless he gets more pain medicine. Objective - Vital Signs/Intake and Output Vital Signs (last 24 hours): Temp Pulse Resp BP Pulse Ox 97.9 F 94 H 20 91/52 L 99 04/16/18 23:00 04/16/18 23:00 04/16/18 23:00 04/16/18 23:00 04/16/18 23:00 Intake and Output: 04/17/18 04/17/18 06:59 18:59 Intake Total 1130 Output Total 200 Balance 930 - Medications Medications: Current Medications Heparin Sodium (Porcine) (Heparin) 5,000 units SC Q12H [facility] Last Admin: 04/16/18 21:54 Dose: Not Given Hydromorphone HCl (Dilaudid) 2 mg IVP Q4H PRN PRN Reason: Pain, moderate (4-7) Last Admin: 04/17/18 05:07 Dose: 2 mg Aztreonam 500 mg/ Sodium (Chloride) 50 mls @ 100 mls/hr IVPB Q8H [facility] PRN Reason: Protocol Last Admin: 04/17/18 04:06 Dose: 100 mls/hr Tigecycline 50 mg/ Sodium (Chloride) 100 mls @ 100 mls/hr IVPB Q12H [facility] PRN Reason: Protocol Last Admin: 04/17/18 01:15 Dose: 100 mls/hr Tobramycin Sulfate 60 mg/ (Sodium Chloride) 101.5 mls @ 101.5 mls/hr IV Q8H [facility] PRN Reason: Protocol Last Admin: 04/17/18 04:05 Dose: 101.5 mls/hr Dextrose/Sodium Chloride (Dextrose 5%/0.9% Ns 1000 Ml) 1,000 mls @ 75 mls/hr IV .[id number] [facility] Last Admin: 04/17/18 04:06 Dose: Not Given Magnesium Sulfate/Dextrose (Magnesium Sulfate 1 Gm/100 Ml D5w) 1 gm in 100 mls @ 300 mls/hr IVPB Q30M [facility] Stop: 04/17/18 08:34 Potassium Chloride (K-Dur 20 Meq Er Tab) 40 meq PO STAT STA Stop: 04/17/18 07:40 Zolpidem Tartrate (Ambien) 5 mg PO HS PRN PRN Reason: Insomnia Last Admin: 04/16/18 21:34 Dose: 5 mg - Labs Labs: 04/17/18 04:42 04/17/18 04:42 PT 17.2 SECONDS (9.7-12.2) H 04/11/18 19:30 INR 1.6 04/11/18 19:30 APTT 38 SECONDS (21-34) H 04/12/18 07:58 Assessment and Plan - Assessment and Plan (Free Text) Plan: - Constitutional Appears: No Acute Distress - Head Exam Head Exam: ATRAUMATIC - Eye Exam Eye Exam: Normal appearance - ENT Exam ENT Exam: Mucous Membranes Moist - Neck Exam Neck Exam: absent: Lymphadenopathy - Respiratory Exam Respiratory Exam: Decreased Breath Sounds, NORMAL BREATHING PATTERN. absent: Accessory Muscle Use, Rales, Rhonchi, Wheezes, Respiratory Distress - Cardiovascular Exam Cardiovascular Exam: Tachycardia (~110 on telemetry), +S1, +S2 - GI/Abdominal Exam GI & Abdominal Exam: Soft. absent: Distended, Firm, Guarding, Rigid, Tenderness Additional comments: colostomy bag in place - Extremities Exam Extremities Exam: absent: Calf Tenderness Additional comments: Left leg AKA - Back Exam Additional comments: Dressing in place over buttock/lower right back. - Neurological Exam Neurological Exam: Alert, Awake, CN II-XII Intact, Oriented x3 - Psychiatric Exam Psychiatric exam: Depressed Additional comments: Requesting more pain medicine. "I have real problems. Test me for heroin, I don' t do it anymore." - Skin Skin Exam: Dry, Warm Assessment and Plan - Assessment and Plan (Free Text) Plan: Sepsis 2/2 Sacral Decubitus Ulcer afebrile ID Consulted, Dr. Varghese * abx per ID * Azreonam 500mg IVPB q8h (started on 04/12) * Tigecycline 50mg IVPB (started on 04/14) * Tobramycin 60mg IV q8h (started on 04/15) Surgery Consulted, Dr. Kim * Scheduled for OR tomorrow morning * NPO after midnight CXR 04/11: Low lung volumes with mild crowded bronchovascular markings and minor bibasilar atelectasis. Euzk-ay-xggdeeni elevation of right hemidiaphragm could be due to eventration. Right IJ central venous line with tip in the right atrium. Sacral Wound Culture 04/11: grew 4 bacteria * E. Coli * Klebsiella Pneumoniae Ssp Pneu - ESBL * MRSA * Group G Strep Urine Culture 04/11: grew 2 bacteria * E. Coli * Beta hemolytic Strep group B Blood Cultures 04/12: Culture #1 * Acinetobacter Baumannii * Group G Strep Culture #2 * Acinetobacter Baumannii * Gram Positive Cocci --> most likely contamination * Group G Strep Wound Culture from OR 04/14: * Klebsiella Pneumoniae Ssp Pneu - ESBL * Proteus Mirabilis Wound Culture from OR 04/15: * Gram Neg Jean-Paul * Gram Neg Jean-Paul #2 * Gram Positive Cocci Procal (04/14): 17.24 Lactic Acid (04/12): 1.6 Meds: * Azreonam 500mg IVPB q8h (started on 04/12) * Tigecycline 50mg IVPB q12h (started on 04/14) * Tobramycin 60mg IV q8h (started on 04/15) * Dilaudid 2mg IVP q4h prn * Patient was informed that he is not getting his pain medicine increased. He got very upset and demanded that Dr. Nieves be called and asked a second time for an increase in medication. Dr. Nieves stated that he does not want to increase any pain medicine at this time. * D5/NS @75mL/hr Anemia Upon admission 7.4 Hgb dropped from 9.0 (04/16) to 7.7 today * transfused one unit of pRBCs on 04/17 * transfused one unit of pRBCs on 04/15 * transfused 2units of pRBCs on 04/12 Continue to monitor Hypokalemia K+ 2.5 Attempted to replete - patient refused oral and IV potassium multiple times. Continue to monitor Hypomagnesemia Mg 1.1 Repleted Continue to monitor Prophylactic Care Heparin 5,000units SC q12h Ambien 5mg PO HS prn Case discussed with Dr. Nieves All medical management per Dr. Lizbeth Johnson Carito PGY2
[2018-04-17] MEDS: Magnesium Sulfate 1 gm in D5W 1 GM/100 ML BAG IVPB SCH ×2 (08:28→09:38)
[2018-04-17] MEDS ORDERED: DiphenhydrAMINE 50 mg/ml Inj IVP PRN (15:00)
--- NOTE | 2018-04-17 18:02 | CP.PCM.PN ---
Subjective - Date & Time of Evaluation Date of Evaluation: 04/17/18 Time of Evaluation: 09:00 - Subjective Subjective: HAS MDRO ACINETOBACTER IN BLOOD IV RX IN PROGRESS Objective - Vital Signs/Intake and Output Vital Signs (last 24 hours): Temp Pulse Resp BP Pulse Ox 98.2 F 89 18 92/55 L 99 04/17/18 17:18 04/17/18 17:18 04/17/18 17:18 04/17/18 17:18 04/17/18 15:05 Intake and Output: 04/17/18 04/17/18 06:59 18:59 Intake Total 1130 940 Output Total 200 Balance 930 940 - Medications Medications: Current Medications Heparin Sodium (Porcine) (Heparin) 5,000 units SC Q12H [facility] Last Admin: 04/17/18 10:22 Dose: Not Given Hydromorphone HCl (Dilaudid) 2 mg IVP Q4H PRN PRN Reason: Pain, moderate (4-7) Last Admin: 04/17/18 13:52 Dose: 2 mg Aztreonam 500 mg/ Sodium (Chloride) 50 mls @ 100 mls/hr IVPB Q8H [facility] PRN Reason: Protocol Last Admin: 04/17/18 12:43 Dose: Not Given Tigecycline 50 mg/ Sodium (Chloride) 100 mls @ 100 mls/hr IVPB Q12H [facility] PRN Reason: Protocol Last Admin: 04/17/18 12:44 Dose: Not Given Dextrose/Sodium Chloride (Dextrose 5%/0.9% Ns 1000 Ml) 1,000 mls @ 75 mls/hr IV .[id number] [facility] Last Admin: 04/17/18 16:41 Dose: Not Given Tobramycin Sulfate 60 mg/ (Sodium Chloride) 101.5 mls @ 101.5 mls/hr IV Q12H [facility] PRN Reason: Protocol Zolpidem Tartrate (Ambien) 5 mg PO HS PRN PRN Reason: Insomnia Last Admin: 04/16/18 21:34 Dose: 5 mg - Labs Labs: 04/17/18 04:42 04/17/18 04:42 PT 17.2 SECONDS (9.7-12.2) H 04/11/18 19:30 INR 1.6 04/11/18 19:30 APTT 38 SECONDS (21-34) H 04/12/18 07:58 - Constitutional Appears: Chronically Ill - Head Exam Head Exam: NORMOCEPHALIC - Eye Exam Eye Exam: absent: Scleral icterus - ENT Exam ENT Exam: Mucous Membranes Dry - Neck Exam Neck Exam: absent: Lymphadenopathy - Respiratory Exam Respiratory Exam: Decreased Breath Sounds - Cardiovascular Exam Cardiovascular Exam: REGULAR RHYTHM - GI/Abdominal Exam GI & Abdominal Exam: Distended - Rectal Exam Rectal Exam: Deferred - Exam Exam: NORMAL INSPECTION - Extremities Exam Extremities Exam: absent: Pedal Edema - Back Exam Back Exam: absent: CVA tenderness (L), CVA tenderness (R) - Neurological Exam Neurological Exam: Alert, Awake - Psychiatric Exam Psychiatric exam: Normal Mood Assessment and Plan (1) Sacral decubitus ulcer, stage IV Status: Acute (2) Cellulitis Status: Acute (3) UTI (urinary tract infection) Status: Acute (4) UTI (urinary tract infection) Status: Acute (5) Sepsis affecting skin Status: Acute (6) Sepsis affecting skin Status: Acute - Assessment and Plan (Free Text) Assessment: bacteremia/ sepsis/ OM infected decubiti surgery on board for multiple debridements
[2018-04-18] MEDS: HYDROmorphone 1 mg/ml ISec IVP PRN ×5 (01:21→22:39)
[2018-04-18] MEDS: Dextrose 5%/0.9% NS 1,000 ML IV SCH ×3 (01:27→19:40)
[2018-04-18 07:24] LABS: BASO % 0.1 % (0.0-2.0); EOS # 0.2 K/uL (0.0-0.7); EOS % 1.4 % (0.0-4.0); HEMOGLOBIN 9.1 g/dL (12.0-18.0); LYMPH % 8.5 % (20.0-40.0); MEAN CELL VOLUME 80.2 fL (80.0-94.0); MEAN CORPUSCULAR HEMOGLOBIN 26.3 pg (27.0-31.0); MEAN CORPUSCULAR HGB CONC 32.8 g/dL (33.0-37.0); MEAN PLATELET VOLUME 6.8 fL (7.2-11.7); MONO # 0.5 K/uL (0.0-0.8); MONO % 4.4 % (0.0-10.0); NEUT # 10.3 K/uL (1.8-7.0); NEUT % 85.6 % (50.0-75.0); NRBC % 0.1 % (0.0-2.0); PLATELET COUNT 297 K/uL (130-400); RBC 3.46 Mil/uL (4.40-5.90)
--- NOTE | 2018-04-18 07:36 | CP.PCM.PN ---
Subjective - Date & Time of Evaluation Date of Evaluation: 04/18/18 Time of Evaluation: 07:36 - Subjective Subjective: Internal Medicine Progress Note - Dr Nieves Service Patient seen and examined at bedside. Per nursing no acute events overnight. Patient is NPO for the OR today with Dr Kim. Patient refusing PO potassium. Offering no complaints at this time. Denies fevers, chills, headaches , dizziness, cp, palpitations, sob, abdominal pain, changes in bowel habits. Objective - Vital Signs/Intake and Output Vital Signs (last 24 hours): Temp Pulse Resp BP Pulse Ox 98.1 F 84 20 103/65 100 04/17/18 23:30 04/17/18 23:30 04/17/18 23:30 04/17/18 23:30 04/17/18 23:30 Intake and Output: 04/18/18 04/18/18 06:59 18:59 Intake Total 1405 Output Total 250 Balance 1155 - Medications Medications: Current Medications Heparin Sodium (Porcine) (Heparin) 5,000 units SC Q12H [facility] Last Admin: 04/17/18 21:50 Dose: Not Given Hydromorphone HCl (Dilaudid) 2 mg IVP Q4H PRN PRN Reason: Pain, moderate (4-7) Last Admin: 04/18/18 05:21 Dose: 2 mg Tigecycline 50 mg/ Sodium (Chloride) 100 mls @ 100 mls/hr IVPB Q12H [facility] PRN Reason: Protocol Last Admin: 04/18/18 01:22 Dose: 100 mls/hr Dextrose/Sodium Chloride (Dextrose 5%/0.9% Ns 1000 Ml) 1,000 mls @ 75 mls/hr IV .[id number] [facility] Last Admin: 04/18/18 05:50 Dose: Not Given Tobramycin Sulfate 60 mg/ (Sodium Chloride) 101.5 mls @ 101.5 mls/hr IV Q12H [facility] PRN Reason: Protocol Zolpidem Tartrate (Ambien) 5 mg PO HS PRN PRN Reason: Insomnia Last Admin: 04/17/18 21:35 Dose: 5 mg - Labs Labs: 04/18/18 06:38 04/17/18 04:42 PT 17.2 SECONDS (9.7-12.2) H 04/11/18 19:30 INR 1.6 04/11/18 19:30 APTT 38 SECONDS (21-34) H 04/12/18 07:58 - Additional Findings Additional findings: - Assessment and Plan (Free Text) Plan: - Constitutional Appears: No Acute Distress - Head Exam Head Exam: ATRAUMATIC - Eye Exam Eye Exam: Normal appearance - ENT Exam ENT Exam: Mucous Membranes Moist - Neck Exam Neck Exam: absent: Lymphadenopathy - Respiratory Exam Respiratory Exam: Decreased Breath Sounds, NORMAL BREATHING PATTERN. absent: Accessory Muscle Use, Rales, Rhonchi, Wheezes, Respiratory Distress - Cardiovascular Exam Cardiovascular Exam: Tachycardia (~110 on telemetry), +S1, +S2 - GI/Abdominal Exam GI & Abdominal Exam: Soft. absent: Distended, Firm, Guarding, Rigid, Tenderness Additional comments: colostomy bag in place - Extremities Exam Extremities Exam: absent: Calf Tenderness Additional comments: Left leg AKA - Back Exam Additional comments: Dressing in place over buttock/lower right back. - Neurological Exam Neurological Exam: Alert, Awake, CN II-XII Intact, Oriented x3 - Psychiatric Exam Psychiatric exam: Depressed - Skin Skin Exam: Dry, Warm Assessment and Plan - Assessment and Plan (Free Text) Assessment: Sepsis 2/2 Sacral Decubitus Ulcer Stable, Afebrile ID Consulted, Dr. Varghese * Abx per ID * Azreonam 500mg IVPB q8h (started on 04/12) - Discontinued * Tigecycline 50mg IVPB (started on 04/14) * Tobramycin 60mg IV q12h (started on 04/15) Surgery Consulted, Dr. Kim * Scheduled for OR today * Currently NPO CXR 04/11: Low lung volumes with mild crowded bronchovascular markings and minor bibasilar atelectasis. Jayr-tj-ggivikah elevation of right hemidiaphragm could be due to eventration. Right IJ central venous line with tip in the right atrium. Sacral Wound Culture 04/11: grew 4 bacteria * E. Coli * Klebsiella Pneumoniae Ssp Pneu - ESBL * MRSA * Group G Strep Urine Culture 04/11: grew 2 bacteria * E. Coli * Beta hemolytic Strep group B Blood Cultures 04/12: Culture #1 * Acinetobacter Baumannii * Group G Strep Culture #2 * Acinetobacter Baumannii * Gram Positive Cocci --> most likely contamination * Group G Strep Repeat Blood cultures 04/17: no growth x 24 hours Wound Culture from OR 04/14: * Klebsiella Pneumoniae Ssp Pneu - ESBL * Proteus Mirabilis Wound Culture from OR 04/15: * Gram Neg Jean-Paul * Gram Neg Jean-Paul #2 * Gram Positive Cocci Procal (04/14): 17.24 Lactic Acid (04/12): 1.6 Patient is refusing echocardiogram repeatedly CT pelvis ordered, to rule out osteomyelitis of the sacrum Wound Care per Dr Kim, he will meet with wound care team on Saturday to assess wound and instruct care Meds: * Azreonam 500mg IVPB q8h (started on 04/12) - Discontinued * Tigecycline 50mg IVPB q12h (started on 04/14) * Tobramycin 60mg IV q12h (started on 04/15) * Dilaudid 2mg IVP q4h prn * D5/NS @75mL/hr Anemia Upon admission 7.4 Hgb dropped from 9.0 (04/16) to 7.7 today * transfused one unit of pRBCs on 04/17 * transfused one unit of pRBCs on 04/15 * transfused 2units of pRBCs on 04/12 Hgb is 9.1 today Continue to monitor Hypokalemia K+ 2.9 Attempted to replete - patient refused oral potassium Was given 20 meq Kcl IVBP x 2 Continue to monitor Hypomagnesemia Mg 1.6 Repleted Continue to monitor Hypocalcemia -Serum calcium 6.0, corrected calcium for low albumin 7.6 -Will continue to monitor Prophylactic Care Heparin 5,000units SC q12h Ambien 5mg PO HS prn Case discussed with Dr. Nieves All medical management per Dr. Lizbeth Tinajero DO PGY-2
[2018-04-18 08:13] LABS: ALB/GLOB RATIO 0.5 (1.0-2.1); ALBUMIN 1.5 g/dL (3.5-5.0); ALT/SGPT 24 U/L (21-72); AST/SGOT 11 U/L (17-59); BLOOD UREA NITROGEN 11 mg/dL (9-20); GFR AFRICAN-AMERICAN > 60; GFR NON-AFRICAN AMERICAN > 60
[2018-04-18 08:55] LABS: ANISOCYTOSIS MODERATE; BANDS 8 % (0-2); LYMPHOCYTE 6 % (20-40); MONOCYTE 3 % (0-10); NEUTROPHIL 83 % (50-75); PLATELET ESTIMATE NORMAL (NORMAL); TOTAL CELLS COUNTED 100
[2018-04-18 08:56] LABS: HYPOCHROMIC SLIGHT
[2018-04-18] MEDS: Potassium Chloride 20 mEq ER Tab PO ONE ×2 (09:20→09:35)
[2018-04-18] MEDS: Tobramycin inj 60 MG in Sodium Chloride 0.9% 100 ML IV SCH ×2 (09:20→22:38)
[2018-04-18] MEDS: Magnesium Sulfate 1 gm in D5W 1 GM/100 ML BAG IVPB SCH ×2 (09:31→10:35)
[2018-04-18] MEDS ORDERED: Midazolam 2 MG/2 ML VIAL ONE (14:24)
[2018-04-18] MEDS ORDERED: Propofol 10 mg/ml Inj (20 ML) ONE (14:24)
--- NOTE | 2018-04-18 16:06 | CP.PCM.PN ---
Subjective - Date & Time of Evaluation Date of Evaluation: 04/18/18 Time of Evaluation: 08:00 - Subjective Subjective: going for flap iv rx reordered Objective - Vital Signs/Intake and Output Vital Signs (last 24 hours): Temp Pulse Resp BP Pulse Ox 98.2 F 97 H 20 100/65 98 04/18/18 07:00 04/18/18 07:00 04/18/18 07:00 04/18/18 07:00 04/18/18 07:00 Intake and Output: 04/18/18 04/18/18 06:59 18:59 Intake Total 1405 0 Output Total 250 Balance 1155 0 - Medications Medications: Current Medications Heparin Sodium (Porcine) (Heparin) 5,000 units SC Q12H [facility] Last Admin: 04/18/18 09:03 Dose: Not Given Hydromorphone HCl (Dilaudid) 2 mg IVP Q4H PRN PRN Reason: Pain, moderate (4-7) Last Admin: 04/18/18 09:20 Dose: 2 mg Hydromorphone HCl (Dilaudid) 0.5 mg IVP Q5M PRN PRN Reason: Pain, severe (8-10) Stop: 04/18/18 17:54 Tigecycline 50 mg/ Sodium (Chloride) 100 mls @ 100 mls/hr IVPB Q12H [facility] PRN Reason: Protocol Last Admin: 04/18/18 12:35 Dose: 100 mls/hr Dextrose/Sodium Chloride (Dextrose 5%/0.9% Ns 1000 Ml) 1,000 mls @ 75 mls/hr IV .[id number] [facility] Last Admin: 04/18/18 05:50 Dose: Not Given Tobramycin Sulfate 60 mg/ (Sodium Chloride) 101.5 mls @ 101.5 mls/hr IV Q12H [facility] PRN Reason: Protocol Last Admin: 04/18/18 09:20 Dose: 101.5 mls/hr Zolpidem Tartrate (Ambien) 5 mg PO HS PRN PRN Reason: Insomnia Last Admin: 04/17/18 21:35 Dose: 5 mg - Labs Labs: 04/18/18 06:38 04/18/18 06:38 PT 17.2 SECONDS (9.7-12.2) H 04/11/18 19:30 INR 1.6 04/11/18 19:30 APTT 38 SECONDS (21-34) H 04/12/18 07:58 - Constitutional Appears: Non-toxic, Chronically Ill - Eye Exam Eye Exam: PERRL. absent: Scleral icterus - ENT Exam ENT Exam: Mucous Membranes Dry - Neck Exam Neck Exam: absent: Lymphadenopathy - Respiratory Exam Respiratory Exam: Decreased Breath Sounds - Cardiovascular Exam Cardiovascular Exam: REGULAR RHYTHM - GI/Abdominal Exam GI & Abdominal Exam: Distended, Soft Additional comments: + colostomy - Rectal Exam Rectal Exam: Deferred - Exam Exam: NORMAL INSPECTION - Extremities Exam Additional comments: left aka + - Back Exam Back Exam: absent: CVA tenderness (L), CVA tenderness (R) - Neurological Exam Neurological Exam: Alert, Awake Assessment and Plan (1) Sacral decubitus ulcer, stage IV Status: Acute (2) Cellulitis Status: Acute (3) UTI (urinary tract infection) Status: Acute (4) UTI (urinary tract infection) Status: Acute (5) Sepsis affecting skin Status: Acute (6) Sepsis affecting skin Status: Acute - Assessment and Plan (Free Text) Assessment: MDRO sepsis infected sacral wound/ likely osteo hx spinal cord injury, large decubitus, colostomy, left aka cont tygacil/ tobra
[2018-04-18] MEDS: HYDROmorphone 0.5 mg/0.5 ml ISec IVP PRN ×2 (18:10→18:32)
[2018-04-19] MEDS: HYDROmorphone 1 mg/ml ISec IVP PRN ×5 (02:43→19:54)
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
[2018-04-19] MEDS: Dextrose 5%/0.9% NS 1,000 ML IV SCH ×2 (09:34→21:49)
[2018-04-19] MEDS: Tobramycin inj 60 MG in Sodium Chloride 0.9% 100 ML IV SCH ×2 (09:35→21:33)
[2018-04-20] MEDS: HYDROmorphone 1 mg/ml ISec IVP PRN ×4 (04:11→12:12)
[2018-04-20] MEDS: Dextrose 5%/0.9% NS 1,000 ML IV SCH (06:59)
[2018-04-20] MEDS: Tobramycin inj 60 MG in Sodium Chloride 0.9% 100 ML IV SCH ×2 (09:40→21:17)
--- NOTE | 2018-04-20 14:59 | CP.PCM.PN ---
Subjective - Date & Time of Evaluation Date of Evaluation: 04/20/18 Time of Evaluation: 08:00 - Subjective Subjective: c/o swollen scrotum difficulty in urinating consider ruano Objective - Vital Signs/Intake and Output Vital Signs (last 24 hours): Temp Pulse Resp BP Pulse Ox 98.8 F 89 20 113/73 98 04/20/18 07:00 04/20/18 07:00 04/20/18 07:00 04/20/18 07:00 04/20/18 07:00 Intake and Output: 04/20/18 04/20/18 06:59 18:59 Intake Total 865 Balance 865 - Medications Medications: Current Medications Heparin Sodium (Porcine) (Heparin) 5,000 units SC Q12H [facility] Last Admin: 04/20/18 09:43 Dose: Not Given Hydromorphone HCl (Dilaudid) 2 mg IVP Q4H PRN PRN Reason: Pain, moderate (4-7) Last Admin: 04/20/18 12:12 Dose: 2 mg Tobramycin Sulfate 60 mg/ (Sodium Chloride) 101.5 mls @ 101.5 mls/hr IV Q12H [facility] PRN Reason: Protocol Last Admin: 04/20/18 09:40 Dose: 101.5 mls/hr Zolpidem Tartrate (Ambien) 5 mg PO HS PRN PRN Reason: Insomnia Last Admin: 04/19/18 21:35 Dose: 5 mg - Labs Labs: 04/18/18 06:38 04/18/18 06:38 PT 17.2 SECONDS (9.7-12.2) H 04/11/18 19:30 INR 1.6 04/11/18 19:30 APTT 38 SECONDS (21-34) H 04/12/18 07:58 - Constitutional Appears: Non-toxic, Chronically Ill - Head Exam Head Exam: NORMOCEPHALIC - Eye Exam Eye Exam: absent: Scleral icterus - ENT Exam ENT Exam: Mucous Membranes Dry - Neck Exam Neck Exam: absent: Lymphadenopathy - Respiratory Exam Respiratory Exam: Decreased Breath Sounds - Cardiovascular Exam Cardiovascular Exam: REGULAR RHYTHM - GI/Abdominal Exam GI & Abdominal Exam: Distended - Rectal Exam Rectal Exam: Deferred Assessment and Plan (1) Sacral decubitus ulcer, stage IV Status: Acute (2) Cellulitis Status: Acute (3) UTI (urinary tract infection) Status: Acute (4) UTI (urinary tract infection) Status: Acute (5) Sepsis affecting skin Status: Acute (6) Sepsis affecting skin Status: Acute
[2018-04-20] MEDS: HYDROmorphone 0.5 mg/0.5 ml ISec IVP PRN ×2 (16:29→20:49)
[2018-04-20] MEDS: Tigecycline 50 MG in Dextrose 5% In Water 100 ML IVPB SCH (17:30)
[2018-04-21] MEDS: HYDROmorphone 0.5 mg/0.5 ml ISec IVP PRN ×6 (00:51→21:27)
[2018-04-21] MEDS: Tigecycline 50 MG in Dextrose 5% In Water 100 ML IVPB SCH ×2 (05:19→16:00)
[2018-04-21 06:56] LABS: BASO # 0.1 K/uL (0.0-0.2); BASO % 0.7 % (0.0-2.0); EOS # 0.2 K/uL (0.0-0.7); EOS % 2.8 % (0.0-4.0); HEMOGLOBIN 8.7 g/dL (12.0-18.0); LYMPH # 1.4 K/uL (1.0-4.3); LYMPH % 15.6 % (20.0-40.0); MEAN CELL VOLUME 80.8 fL (80.0-94.0); MEAN CORPUSCULAR HEMOGLOBIN 26.6 pg (27.0-31.0); MEAN PLATELET VOLUME 6.8 fL (7.2-11.7); MONO # 0.6 K/uL (0.0-0.8); MONO % 7.4 % (0.0-10.0); NEUT # 6.5 K/uL (1.8-7.0); NEUT % 73.5 % (50.0-75.0); RBC 3.27 Mil/uL (4.40-5.90); RED CELL DISTRIBUTION WIDTH 20.5 % (11.5-14.5); WHITE BLOOD COUNT 8.8 K/uL (4.8-10.8)
[2018-04-21 07:38] LABS: ALB/GLOB RATIO 0.5 (1.0-2.1); ALBUMIN 1.6 g/dL (3.5-5.0); ALT/SGPT 19 U/L (21-72); AST/SGOT 13 U/L (17-59); BLOOD UREA NITROGEN 8 mg/dL (9-20); CALCIUM 6.3 mg/dl (8.6-10.4); GFR AFRICAN-AMERICAN > 60; GFR NON-AFRICAN AMERICAN > 60
[2018-04-21] MEDS: Tobramycin inj 60 MG in Sodium Chloride 0.9% 100 ML IV SCH ×2 (10:10→21:25)
--- NOTE | 2018-04-21 12:13 | CP.PCM.PN ---
Subjective - Date & Time of Evaluation Date of Evaluation: 04/21/18 Time of Evaluation: 09:00 - Subjective Subjective: c/o swollen scrotum difficulty in urinating consider eval Objective - Vital Signs/Intake and Output Vital Signs (last 24 hours): Temp Pulse Resp BP Pulse Ox 98.4 F 92 H 20 108/65 98 04/21/18 07:00 04/21/18 07:00 04/21/18 07:00 04/21/18 07:00 04/21/18 07:00 Intake and Output: 04/21/18 04/21/18 06:59 18:59 Intake Total 865 Balance 865 - Medications Medications: Current Medications Hydromorphone HCl (Dilaudid) 2 mg IVP Q4H PRN PRN Reason: Pain, moderate (4-7) Last Admin: 04/21/18 09:44 Dose: 2 mg Tobramycin Sulfate 60 mg/ (Sodium Chloride) 101.5 mls @ 101.5 mls/hr IV Q12H [facility] PRN Reason: Protocol Last Admin: 04/20/18 21:17 Dose: 101.5 mls/hr Tigecycline 50 mg/ Dextrose 100 mls @ 100 mls/hr IVPB Q12H [facility] PRN Reason: Protocol Stop: 06/06/18 16:31 Last Admin: 04/21/18 05:19 Dose: 100 mls/hr Zolpidem Tartrate (Ambien) 5 mg PO HS PRN PRN Reason: Insomnia Last Admin: 04/20/18 21:18 Dose: 5 mg - Labs Labs: 04/21/18 06:43 04/21/18 06:43 PT 17.2 SECONDS (9.7-12.2) H 04/11/18 19:30 INR 1.6 04/11/18 19:30 APTT 38 SECONDS (21-34) H 04/12/18 07:58 - Constitutional Appears: Non-toxic, Chronically Ill - Head Exam Head Exam: NORMOCEPHALIC - Eye Exam Eye Exam: PERRL - ENT Exam ENT Exam: Mucous Membranes Dry - Neck Exam Neck Exam: absent: Lymphadenopathy - Respiratory Exam Respiratory Exam: Decreased Breath Sounds - Cardiovascular Exam Cardiovascular Exam: REGULAR RHYTHM - GI/Abdominal Exam GI & Abdominal Exam: Distended - Rectal Exam Rectal Exam: Deferred Assessment and Plan (1) Sacral decubitus ulcer, stage IV Status: Acute (2) Cellulitis Status: Acute (3) UTI (urinary tract infection) Status: Acute (4) UTI (urinary tract infection) Status: Acute (5) Sepsis affecting skin Status: Acute (6) Sepsis affecting skin Status: Acute - Assessment and Plan (Free Text) Assessment: c/o swollen scrotum difficulty in urinating consider eval
--- NOTE | 2018-04-21 14:38 | CP.PCM.PN ---
Subjective - Date & Time of Evaluation Date of Evaluation: 04/21/18 Time of Evaluation: 14:35 - Subjective Subjective: PGY2 Medicine Note for Dr. Nieves Patient seen and examined this morning at bedside. No acute events overnight. Patient is still requesting an increase in his pain medications. He has no other complaints at this time. He is tolerating his diet. ROS negative other than pain at this time. Objective - Vital Signs/Intake and Output Vital Signs (last 24 hours): Temp Pulse Resp BP Pulse Ox 98.4 F 92 H 20 108/65 98 04/21/18 07:00 04/21/18 07:00 04/21/18 07:00 04/21/18 07:00 04/21/18 07:00 Intake and Output: 04/21/18 04/21/18 06:59 18:59 Intake Total 865 Balance 865 - Medications Medications: Current Medications Hydromorphone HCl (Dilaudid) 2 mg IVP Q4H PRN PRN Reason: Pain, moderate (4-7) Last Admin: 04/21/18 14:00 Dose: 2 mg Tobramycin Sulfate 60 mg/ (Sodium Chloride) 101.5 mls @ 101.5 mls/hr IV Q12H FREEDOM PRN Reason: Protocol Last Admin: 04/21/18 10:10 Dose: Not Given Tigecycline 50 mg/ Dextrose 100 mls @ 100 mls/hr IVPB Q12H FREEDOM PRN Reason: Protocol Stop: 06/06/18 16:31 Last Admin: 04/21/18 05:19 Dose: 100 mls/hr Zolpidem Tartrate (Ambien) 5 mg PO HS PRN PRN Reason: Insomnia Last Admin: 04/20/18 21:18 Dose: 5 mg - Labs Labs: 04/21/18 06:43 04/21/18 06:43 PT 17.2 SECONDS (9.7-12.2) H 04/11/18 19:30 INR 1.6 04/11/18 19:30 APTT 38 SECONDS (21-34) H 04/12/18 07:58 - Constitutional Appears: Chronically Ill - Head Exam Head Exam: NORMOCEPHALIC - Eye Exam Eye Exam: Normal appearance - ENT Exam ENT Exam: Mucous Membranes Moist - Respiratory Exam Respiratory Exam: Decreased Breath Sounds, NORMAL BREATHING PATTERN. absent: Accessory Muscle Use, Rales, Rhonchi, Wheezes, Respiratory Distress - Cardiovascular Exam Cardiovascular Exam: REGULAR RHYTHM, +S1, +S2 - GI/Abdominal Exam GI & Abdominal Exam: Soft. absent: Distended, Firm, Guarding, Rigid, Tenderness Additional comments: colostomy bag in place - Exam Exam: Scrotal Swelling - Extremities Exam Extremities Exam: absent: Calf Tenderness Additional comments: Left leg AKA - Back Exam Additional comments: Dressing in place over buttock/lower right back. - Neurological Exam Neurological Exam: Alert, Awake, CN II-XII Intact, Oriented x3 - Psychiatric Exam Psychiatric exam: Depressed Additional comments: Constantly requesting an increase in pain medication. - Skin Skin Exam: Dry, Warm Assessment and Plan - Assessment and Plan (Free Text) Plan: Sepsis 2/2 Sacral Decubitus Ulcer afebrile ID Consulted, Dr. Varghese * abx per ID * Azreonam 500mg IVPB q8h (started on 04/12) * Tigecycline 50mg IVPB (started on 04/14) * Tobramycin 60mg IV q8h (started on 04/15) Surgery Consulted, Dr. Kim * Scheduled for OR tomorrow morning * NPO after midnight CXR 04/11: Low lung volumes with mild crowded bronchovascular markings and minor bibasilar atelectasis. [id number] elevation of right hemidiaphragm could be due to eventration. Right IJ central venous line with tip in the right atrium. Sacral Wound Culture 04/11: grew 4 bacteria * E. Coli * Klebsiella Pneumoniae Ssp Pneu - ESBL * MRSA * Group G Strep Urine Culture 04/11: grew 2 bacteria * E. Coli * Beta hemolytic Strep group B Blood Cultures 04/12: Culture #1 * Acinetobacter Baumannii * Group G Strep Culture #2 * Acinetobacter Baumannii * Gram Positive Cocci --> most likely contamination * Group G Strep Wound Culture from OR 04/14: * Klebsiella Pneumoniae Ssp Pneu - ESBL * Proteus Mirabilis Wound Culture from OR 04/15: * Klebsiella Pneumoniae Ssp Pneu - ESBL * Pseudomonas Aeruginosa * MRSA Blood Culture 04/17: * No growth after 4 days x 2 Wound Culture from OR 04/18 * Klebsiella Pneumoniae Ssp Pneu - ESBL Procal (04/14): 17.24 Lactic Acid (04/12): 1.6 Patient is refusing echocardiogram repeatedly CT pelvis ordered, to rule out osteomyelitis of the sacrum Wound Care per Dr Kim, he will meet with wound care team on Saturday to assess wound and instruct care Meds: * Tigecycline 50mg IVPB q12h (started on 04/14) * Tobramycin 60mg IV q8h (started on 04/15) * Dilaudid 2mg IVP q4h prn * Patient was informed that he is not getting his pain medicine increased. He got very upset and demanded that Dr. Nieves be called and asked a second time for an increase in medication. Dr. Nieves stated that he does not want to increase any pain medicine at this time. Anemia Upon admission 7.4 Hgb stable 8.7 * transfused one unit of pRBCs on 04/17 * transfused one unit of pRBCs on 04/15 * transfused 2units of pRBCs on 04/12 Continue to monitor Hypokalemia K+ 2.9 Repleted Continue to monitor Hypomagnesemia Mg 1.5 Continue to monitor Prophylactic Care Heparin 5,000units SC q12h Ambien 5mg PO HS prn Case discussed with Dr. Nieves All medical management per Dr. Lizbeth Johnson Carito PGY2
[2018-04-21] MEDS ORDERED: Potassium Chloride 20 mEq ER Tab PO STA (14:44)
[2018-04-21] MEDS: DiphenhydrAMINE 50 mg/ml Inj IVP PRN (22:20)
[2018-04-22] MEDS: HYDROmorphone 0.5 mg/0.5 ml ISec IVP PRN ×5 (01:44→20:36)
[2018-04-22] MEDS: Tigecycline 50 MG in Dextrose 5% In Water 100 ML IVPB SCH ×2 (04:08→16:33)
[2018-04-22] MEDS: DiphenhydrAMINE 50 mg/ml Inj IVP PRN ×4 (05:46→22:26)
--- NOTE | 2018-04-22 07:40 | CP.PCM.PN ---
Subjective - Date & Time of Evaluation Date of Evaluation: 04/22/18 Time of Evaluation: 07:35 - Subjective Subjective: PGY2 Medicine Note for Dr. Nieves Patient seen and examined this morning at bedside. No acute events overnight. He reports difficulty with urination and that he has had multiple episodes of incontinence. His scrotum is still swollen and getting larger. He is tolerating his diet. Patient states he does not want a PICC line in his arm. He has denies continued requests for a PICC as he needs bed bug exterminator abx. He denies fevers, chills, nausea, vomiting, diarrhea, constipation, chest pain, shortness of breath, palpitations, abdominal pain, headaches or vision changes. Objective - Vital Signs/Intake and Output Vital Signs (last 24 hours): Temp Pulse Resp BP Pulse Ox 98.5 F 101 H 20 108/71 100 04/21/18 23:35 04/21/18 23:35 04/21/18 23:35 04/21/18 23:35 04/21/18 23:35 Intake and Output: 04/22/18 04/22/18 06:59 18:59 Intake Total 1105 Balance 1105 - Medications Medications: Current Medications Diphenhydramine HCl (Benadryl) 50 mg IVP Q6 PRN PRN Reason: Itching / Pruritus Last Admin: 04/22/18 05:46 Dose: 50 mg Heparin Sodium (Porcine) (Heparin) 5,000 units SC Q12 FREEDOM Last Admin: 04/21/18 22:30 Dose: Not Given Hydromorphone HCl (Dilaudid) 2 mg IVP Q4H PRN PRN Reason: Pain, moderate (4-7) Last Admin: 04/22/18 05:40 Dose: 2 mg Tobramycin Sulfate 60 mg/ (Sodium Chloride) 101.5 mls @ 101.5 mls/hr IV Q12H F[facility]EDOM PRN Reason: Protocol Last Admin: 04/21/18 21:25 Dose: 101.5 mls/hr Tigecycline 50 mg/ Dextrose 100 mls @ 100 mls/hr IVPB Q12H FREEDOM PRN Reason: Protocol Stop: 06/06/18 16:31 Last Admin: 04/22/18 04:08 Dose: 100 mls/hr Zolpidem Tartrate (Ambien) 5 mg PO HS PRN PRN Reason: Insomnia Last Admin: 04/21/18 21:26 Dose: 5 mg - Labs Labs: 04/21/18 06:43 04/21/18 06:43 PT 17.2 SECONDS (9.7-12.2) H 04/11/18 19:30 INR 1.6 04/11/18 19:30 APTT 38 SECONDS (21-34) H 04/12/18 07:58 - Constitutional Appears: Chronically Ill - Head Exam Head Exam: NORMOCEPHALIC - Eye Exam Eye Exam: Normal appearance - ENT Exam ENT Exam: Mucous Membranes Moist - Respiratory Exam Respiratory Exam: Clear to Ausculation Bilateral, NORMAL BREATHING PATTERN. absent: Accessory Muscle Use, Rales, Rhonchi, Wheezes, Respiratory Distress - Cardiovascular Exam Cardiovascular Exam: REGULAR RHYTHM, +S1, +S2 - GI/Abdominal Exam GI & Abdominal Exam: Soft. absent: Distended, Firm, Guarding, Rigid, Tenderness Additional comments: Colostomy bag in place with brown fecal material in bag. - Exam Exam: Scrotal Swelling (increaseing in size) - Extremities Exam Extremities Exam: absent: Calf Tenderness Additional comments: Left leg AKA - Back Exam Additional comments: Dressing in place over buttock/lower right back. - Neurological Exam Neurological Exam: Alert, Awake, Oriented x3 - Psychiatric Exam Psychiatric exam: Depressed - Skin Skin Exam: Dry, Warm Assessment and Plan - Assessment and Plan (Free Text) Plan: Sepsis 2/2 Sacral Decubitus Ulcer afebrile ID Consulted, Dr. Varghese - follow up recs * abx per ID * Patient likely has Osteomyelitis, will need total of 6 weeks of antibiotics * Tigecycline 50mg IVPB (started on 04/14) - End date 06/04/18 * Tobramycin 60mg IV q8h (started on 04/15) - End date 06/06/18 Surgery Consulted, Dr. Kim * Wound care per Surgery * recs pending CXR 04/11: Low lung volumes with mild crowded bronchovascular markings and minor bibasilar atelectasis. [id number]-[id number] elevation of right hemidiaphragm could be due to eventration. Right IJ central venous line with tip in the right atrium. Sacral Wound Culture 04/11: grew 4 bacteria * E. Coli * Klebsiella Pneumoniae Ssp Pneu - ESBL * MRSA * Group G Strep Urine Culture 04/11: grew 2 bacteria * E. Coli * Beta hemolytic Strep group B Blood Cultures 04/12: Culture #1 * Acinetobacter Baumannii * Group G Strep Culture #2 * Acinetobacter Baumannii * Gram Positive Cocci --> most likely contamination * Group G Strep Wound Culture from [place] 04/14: * Klebsiella Pneumoniae Ssp Pneu - ESBL * Proteus Mirabilis Wound Culture from OR 04/15: * Klebsiella Pneumoniae Ssp Pneu - ESBL * Pseudomonas Aeruginosa * MRSA Blood Culture 04/17: * No growth after 5 days x 2 Wound Culture from OR 04/18 * Klebsiella Pneumoniae Ssp Pneu - ESBL Procal (04/14): 17.24 Lactic Acid (04/12): 1.6 Patient is refusing echocardiogram repeatedly CT pelvis ordered, to rule out osteomyelitis of the sacrum Meds: * Tigecycline 50mg IVPB q12h (started on 04/14) - End date 06/04/18 * Tobramycin 60mg IV q8h (started on 04/15) - End date 06/06/18 * Dilaudid 2mg IVP q4h prn * Patient was informed that he is not getting his pain medicine increased. He got very upset and demanded that Dr. Nieves be called and asked a second time for an increase in medication. Dr. Nieves stated that he does not want to increase any pain medicine at this time. Anemia Upon admission 7.4 Hgb stable 8.6 * transfused one unit of pRBCs on 04/17 * transfused one unit of pRBCs on 04/15 * transfused 2units of pRBCs on 04/12 Continue to monitor Hypokalemia K+ 3.5 Repleted Continue to monitor Hypomagnesemia Mg 1.4 Repleted Continue to monitor Prophylactic Care Heparin 5,000units SC q12h Ambien 5mg PO HS prn DISPO: Patient is still refusing PICC placement. Patient will need a total duration of [address] weeks of antibiotics per Dr[address] Varghese for treatment of likely Osteomyelitis. Case discussed with Dr. Nieves All medical management per Dr. Lizbeth Johnson Carito PGY2
[2018-04-22 09:07] LABS: BASO # 0.1 K/uL (0.0-0.2); EOS # 0.2 K/uL (0.0-0.7); EOS % 2.4 % (0.0-4.0); HEMOGLOBIN 8.6 g/dL (12.0-18.0); LYMPH # 1.4 K/uL (1.0-4.3); MEAN CORPUSCULAR HEMOGLOBIN 26.9 pg (27.0-31.0); MONO # 0.6 K/uL (0.0-0.8); RBC 3.2 Mil/uL (4.40-5.90)
[2018-04-22 09:09] LABS: LYMPH % 17.2 % (20.0-40.0); MEAN CELL VOLUME 81.1 fL (80.0-94.0); MEAN CORPUSCULAR HGB CONC 33.1 g/dL (33.0-37.0); MEAN PLATELET VOLUME 6.9 fL (7.2-11.7); MONO % 7.8 % (0.0-10.0); NEUT # 5.7 K/uL (1.8-7.0); NEUT % 71.6 % (50.0-75.0); RED CELL DISTRIBUTION WIDTH 20.7 % (11.5-14.5); WHITE BLOOD COUNT 7.9 K/uL (4.8-10.8)
[2018-04-22 09:24] LABS: ALB/GLOB RATIO 0.5 (1.0-2.1); ALBUMIN 1.5 g/dL (3.5-5.0); ALT/SGPT 23 U/L (21-72); AST/SGOT 10 U/L (17-59); BLOOD UREA NITROGEN 11 mg/dL (9-20); CALCIUM 6.7 mg/dl (8.6-10.4); GFR AFRICAN-AMERICAN > 60; GFR NON-AFRICAN AMERICAN > 60
[2018-04-22] MEDS: Tobramycin inj 60 MG in Sodium Chloride 0.9% 100 ML IV SCH ×2 (09:40→22:26)
[2018-04-22] MEDS ORDERED: Magnesium Sulfate 1 gm in D5W 1 GM/100 ML BAG IVPB ONE (10:02)
[2018-04-22] MEDS ORDERED: Potassium Chloride 20 mEq ER Tab PO STA (10:02)
--- NOTE | 2018-04-22 12:43 | CP.PCM.PN ---
Subjective - Date & Time of Evaluation Date of Evaluation: 04/22/18 Time of Evaluation: 09:00 - Subjective Subjective: afeb on IV rx has + Blood cultures for MDRO - likely from necrotic wounds which were debrided also likely has OM will need 6 week s iv rx Objective - Vital Signs/Intake and Output Vital Signs (last 24 hours): Temp Pulse Resp BP Pulse Ox 98.7 F 110 H 20 116/81 100 04/22/18 07:00 04/22/18 07:00 04/22/18 07:00 04/22/18 09:46 04/22/18 07:00 Intake and Output: 04/22/18 04/22/18 06:59 18:59 Intake Total 1105 Balance 1105 - Medications Medications: Current Medications Diphenhydramine HCl (Benadryl) 50 mg IVP Q6 PRN PRN Reason: Itching / Pruritus Last Admin: 04/22/18 11:50 Dose: 50 mg Heparin Sodium (Porcine) (Heparin) 5,000 units SC Q12 FREEDOM Last Admin: 04/22/18 09:40 Dose: Not Given Hydromorphone HCl (Dilaudid) 2 mg IVP Q4H PRN PRN Reason: Pain, moderate (4-7) Last Admin: 04/22/18 09:37 Dose: 2 mg Tobramycin Sulfate 60 mg/ (Sodium Chloride) 101.5 mls @ 101.5 mls/hr IV Q12H FREEDOM PRN Reason: Protocol Last Admin: 04/22/18 09:40 Dose: Not Given Tigecycline 50 mg/ Dextrose 100 mls @ 100 mls/hr IVPB Q12H FREEDOM PRN Reason: Protocol Stop: 06/06/18 16:31 Last Admin: 04/22/18 04:08 Dose: 100 mls/hr Zolpidem Tartrate (Ambien) 5 mg PO HS PRN PRN Reason: Insomnia Last Admin: 04/21/18 21:26 Dose: 5 mg - Labs Labs: 04/22/18 09:04 04/22/18 09:04 PT 17.2 SECONDS (9.7-12.2) H 04/11/18 19:30 INR 1.6 04/11/18 19:30 APTT 38 SECONDS (21-34) H 04/12/18 07:58 Assessment and Plan (1) Sacral decubitus ulcer, stage IV Status: Acute (2) Cellulitis Status: Acute (3) UTI (urinary tract infection) Status: Acute (4) UTI (urinary tract infection) Status: Acute (5) Sepsis affecting skin Status: Acute (6) Sepsis affecting skin Status: Acute
[2018-04-22] MEDS ORDERED: HYDROmorphone 1 mg/ml ISec IVP ONE (15:00)
--- NOTE | 2018-04-22 20:38 | PN ---
DATE: 04/22/2018 SUBJECTIVE: The patient is 4 days status post debridement and placement of a Dermagraft of a large open wound of his back and left AKA stump. Currently, resting comfortably in bed. PHYSICAL EXAMINATION: VITAL SIGNS: Temperature 98.7, pulse is 110, blood pressure 99/66, respiratory rate 20, and O2 sats 100% on room air. Examination of his wound revealed fortunately the previous Dermagraft is no longer present. There was a record that the patient had a dressing change two days ago and it must have been removed along with the dressing change. This is despite the fact that I wound care order on the chart. Otherwise, the wound is pink and clean. It was irrigated, debrided, and a small area of osteomyelitis was redrained. It was repacked with saline gauze and a dry sterile dressing. The patient tolerated the procedure well at the bedside. I then discussed his wound care with the wound care nurse and left an order for daily wound care. Right now, this is a large wound which has become and beyond the scope of my care, it is a result of dehiscence of the plastic surgery procedure and the patient should have plastic surgery followup at some point. Prasanth Kim MD
[2018-04-23] MEDS: HYDROmorphone 0.5 mg/0.5 ml ISec IVP PRN ×5 (00:18→16:25)
[2018-04-23] MEDS: DiphenhydrAMINE 50 mg/ml Inj IVP PRN ×4 (04:22→23:51)
[2018-04-23] MEDS: Tigecycline 50 MG in Dextrose 5% In Water 100 ML IVPB SCH ×2 (04:25→18:26)
[2018-04-23 07:30] LABS: BASO # 0.1 K/uL (0.0-0.2); BASO % 0.3 % (0.0-2.0); EOS % 0.1 % (0.0-4.0); HEMOGLOBIN 9.1 g/dL (12.0-18.0); LYMPH # 0.9 K/uL (1.0-4.3); LYMPH % 2.8 % (20.0-40.0); MEAN CELL VOLUME 81.4 fL (80.0-94.0); MEAN CORPUSCULAR HEMOGLOBIN 26.3 pg (27.0-31.0); MEAN CORPUSCULAR HGB CONC 32.3 g/dL (33.0-37.0); MEAN PLATELET VOLUME 7.1 fL (7.2-11.7); MONO # 0.5 K/uL (0.0-0.8); MONO % 1.4 % (0.0-10.0); NEUT # 31.8 K/uL (1.8-7.0); NEUT % 95.4 % (50.0-75.0); PLATELET COUNT 280 K/uL (130-400); RBC 3.46 Mil/uL (4.40-5.90); RED CELL DISTRIBUTION WIDTH 20.9 % (11.5-14.5)
[2018-04-23 07:34] LABS: WHITE BLOOD COUNT 33.3 K/uL (4.8-10.8)
[2018-04-23 07:44] LABS: ALB/GLOB RATIO 0.5 (1.0-2.1); ALBUMIN 1.6 g/dL (3.5-5.0); ALT/SGPT 21 U/L (21-72); AST/SGOT 17 U/L (17-59); BLOOD UREA NITROGEN 15 mg/dL (9-20); GFR AFRICAN-AMERICAN > 60; GFR NON-AFRICAN AMERICAN > 60
--- NOTE | 2018-04-23 08:48 | CP.PCM.PN ---
Subjective - Date & Time of Evaluation Date of Evaluation: 04/23/18 Time of Evaluation: 08:48 - Subjective Subjective: PGY2 Medicine Note for Dr. Nieves Patient seen and examined this morning at bedside. No acute events over night. Patient is resting comfortably in his bed. Patient agrees to finally have picc line placed today. He is still complaining of pain. He does not complain of scrotal pain. Denies fevers, chills, nausea, vomiting, diarrhea, constipation, chest pain, shortness of breath, palpitations. Objective - Vital Signs/Intake and Output Vital Signs (last 24 hours): Temp Pulse Resp BP Pulse Ox 99.3 F 100 H 20 92/58 L 98 04/23/18 04:00 04/23/18 04:00 04/23/18 04:00 04/23/18 04:00 04/23/18 04:00 Intake and Output: 04/23/18 04/23/18 06:59 18:59 Intake Total 680 Balance 680 - Medications Medications: Current Medications Diphenhydramine HCl (Benadryl) 50 mg IVP Q6 PRN PRN Reason: Itching / Pruritus Last Admin: 04/23/18 04:22 Dose: 50 mg Heparin Sodium (Porcine) (Heparin) 5,000 units SC Q12 FREEDOM Last Admin: 04/22/18 22:32 Dose: Not Given Hydromorphone HCl (Dilaudid) 2 mg IVP Q4H PRN PRN Reason: Pain, moderate (4-7) Last Admin: 04/23/18 08:21 Dose: 2 mg Tobramycin Sulfate 60 mg/ (Sodium Chloride) 101.5 mls @ 101.5 mls/hr IV Q12H FREEDOM PRN Reason: Protocol Last Admin: 04/22/18 22:26 Dose: 101.5 mls/hr Tigecycline 50 mg/ Dextrose 100 mls @ 100 mls/hr IVPB Q12H FREEDOM PRN Reason: Protocol Stop: 06/06/18 16:31 Last Admin: 04/23/18 04:25 Dose: 100 mls/hr Zolpidem Tartrate (Ambien) 5 mg PO HS PRN PRN Reason: Insomnia Last Admin: 04/22/18 22:26 Dose: 5 mg - Labs Labs: 04/23/18 07:20 04/23/18 07:20 PT 17.2 SECONDS (9.7-12.2) H 04/11/18 19:30 INR 1.6 04/11/18 19:30 APTT 38 SECONDS (21-34) H 04/12/18 07:58 - Constitutional Appears: Chronically Ill - Head Exam Head Exam: NORMAL INSPECTION - Eye Exam Eye Exam: Normal appearance - ENT Exam ENT Exam: Mucous Membranes Moist - Respiratory Exam Respiratory Exam: Clear to Ausculation Bilateral, Wheezes, NORMAL BREATHING PATTERN. absent: Accessory Muscle Use, Rales, Rhonchi, Respiratory Distress - Cardiovascular Exam Cardiovascular Exam: REGULAR RHYTHM, +S1, +S2 - GI/Abdominal Exam GI & Abdominal Exam: Soft. absent: Distended, Firm, Guarding, Rigid, Rebound Additional comments: Colostomy bag in place with brown fecal material in bag. - Exam Exam: Scrotal Swelling (decreased from yesterday) - Extremities Exam Extremities Exam: absent: Calf Tenderness Additional comments: Left leg AKA - Back Exam Additional comments: Dressing in place over buttock/lower right back. - Neurological Exam Neurological Exam: Alert, Awake, Oriented x3 - Psychiatric Exam Psychiatric exam: Depressed - Skin Skin Exam: Dry, Warm Assessment and Plan - Assessment and Plan (Free Text) Plan: Sepsis 2/2 Sacral Decubitus Ulcer afebrile (Tmax 99.6F oral) WBC 30.4 * Bands 16 * continue to monitor ID Consulted, Dr. Varghese - follow up recs * abx per ID * Patient likely has Osteomyelitis, will need total of 6 weeks of antibiotics * Tigecycline 50mg IVPB (started on 04/14) - End date 06/04/18 * Tobramycin 60mg IV q8h (started on 04/15) - End date 06/06/18 Surgery Consulted, Dr. Kim * Wound care per Surgery * cleared for dc CXR 04/11: Low lung volumes with mild crowded bronchovascular markings and minor bibasilar atelectasis. [id number] elevation of right hemidiaphragm could be due to eventration. Right IJ central venous line with tip in the right atrium. Sacral Wound Culture 04/11: grew 4 bacteria * E. Coli * Klebsiella Pneumoniae Ssp Pneu - ESBL * MRSA * Group G Strep Urine Culture 04/11: grew 2 bacteria * E. Coli * Beta hemolytic Strep group B Blood Cultures 04/12: Culture #1 * Acinetobacter Baumannii * Group G Strep Culture #2 * Acinetobacter Baumannii * Gram Positive Cocci --> most likely contamination * Group G Strep Wound Culture from [place] 04/14: * Klebsiella Pneumoniae Ssp Pneu - ESBL * Proteus Mirabilis Wound Culture from OR 04/15: * Klebsiella Pneumoniae Ssp Pneu - ESBL * Pseudomonas Aeruginosa * MRSA Blood Culture 04/17: * No growth after 5 days x 2 Wound Culture from OR 04/18 * Klebsiella Pneumoniae Ssp Pneu - ESBL Procal (04/14): 17.24 Lactic Acid (04/12): 1.6 Patient scheduled to have PICC line placed today. Meds: * Tigecycline 50mg IVPB q12h (started on 04/14) - End date 06/04/18 * Tobramycin 60mg IV q8h (started on 04/15) - End date 06/06/18 * Dilaudid 2mg IVP q4h prn * Patient was informed that he is not getting his pain medicine increased. He got very upset and demanded that Dr. Nieves be called and asked a second time for an increase in medication. Dr. Nieves stated that he does not want to increase any pain medicine at this time. Anemia Upon admission 7.4 Hgb stable 9.1 * transfused one unit of pRBCs on 04/17 * transfused one unit of pRBCs on 04/15 * transfused 2units of pRBCs on 04/12 Continue to monitor Hypokalemia K+ 3.8 Continue to monitor Hypomagnesemia Mg 1.6 Continue to monitor Prophylactic Care Heparin 5,000units SC q12h Ambien 5mg PO HS prn DISPO: Patient to be discharged in AM. Patient will need a total duration of [address] weeks of antibiotics per Dr. Varghese for treatment of likely Osteomyelitis. Case discussed with Dr. Nieves All medical management per Dr. Lizbeth Johnson Carito PGY2
[2018-04-23 09:44] LABS: ANISOCYTOSIS MODERATE; BANDS 13 % (0-2); METAMYELOCYTE 1 % (0-0); PLATELET ESTIMATE NORMAL (NORMAL); TOTAL CELLS COUNTED 100
[2018-04-23 09:45] LABS: HYPOCHROMIC SLIGHT; TOXIC GRANULATION PRESENT
[2018-04-23 10:48] LABS: LYMPHOCYTE 2 % (20-40); NEUTROPHIL 84 % (50-75)
[2018-04-23] MEDS: Tobramycin inj 60 MG in Sodium Chloride 0.9% 100 ML IV SCH ×2 (11:27→21:50)
--- NOTE | 2018-04-23 11:46 | RAD ---
Date of service: 04/23/2018 HISTORY: verify right PICC COMPARISON: No prior. FINDINGS: In situ right-sided PICC line with tip in the RA/SVC junction. Right IJ central venous line with tip in the SVC LUNGS: Elevation right hemidiaphragm possibly due to eventration. Mild bibasilar atelectasis right greater than left. PLEURA: No significant pleural effusion identified, no pneumothorax apparent. CARDIOVASCULAR: Normal. OSSEOUS STRUCTURES: No significant abnormalities. VISUALIZED UPPER ABDOMEN: Normal. OTHER FINDINGS: None. IMPRESSION: Right-sided PICC line and right IJ central line as above. Elevation right hemidiaphragm possibly due to eventration. Atelectatic changes both lung bases right greater than left
[2018-04-23 13:53] LABS: BASO # 0.1 K/uL (0.0-0.2); BASO % 0.4 % (0.0-2.0); EOS % 0.1 % (0.0-4.0); HEMOGLOBIN 9.1 g/dL (12.0-18.0); LYMPH # 1.3 K/uL (1.0-4.3); LYMPH % 4.3 % (20.0-40.0); MEAN CELL VOLUME 83.1 fL (80.0-94.0); MEAN CORPUSCULAR HEMOGLOBIN 26.3 pg (27.0-31.0); MEAN CORPUSCULAR HGB CONC 31.7 g/dL (33.0-37.0); MEAN PLATELET VOLUME 7.5 fL (7.2-11.7); MONO # 0.7 K/uL (0.0-0.8); MONO % 2.2 % (0.0-10.0); NEUT # 28.3 K/uL (1.8-7.0); PLATELET COUNT 264 K/uL (130-400); RBC 3.45 Mil/uL (4.40-5.90); RED CELL DISTRIBUTION WIDTH 21.3 % (11.5-14.5); WHITE BLOOD COUNT 30.4 K/uL (4.8-10.8)
[2018-04-23 14:29] LABS: ANISOCYTOSIS MODERATE; BANDS 16 % (0-2); LYMPHOCYTE 1 % (20-40); MONOCYTE 1 % (0-10); PLATELET ESTIMATE NORMAL (NORMAL); TOTAL CELLS COUNTED 100
[2018-04-23 14:30] LABS: HYPOCHROMIC SLIGHT; NEUTROPHIL 82 % (50-75); TOXIC GRANULATION PRESENT
[2018-04-23 16:42] VITALS: O2SAT 99
[2018-04-23] MEDS: HYDROmorphone 1 mg/ml ISec IVP PRN (21:49)
[2018-04-24 01:34] VITALS: RESP 20
[2018-04-24] MEDS: HYDROmorphone 1 mg/ml ISec IVP PRN ×4 (01:40→14:35)
[2018-04-24] MEDS: Tigecycline 50 MG in Dextrose 5% In Water 100 ML IVPB SCH (05:29)
[2018-04-24] MEDS: DiphenhydrAMINE 50 mg/ml Inj IVP PRN ×3 (05:31→16:27)
[2018-04-24 06:56] LABS: BASO # 0.1 K/uL (0.0-0.2); BASO % 0.6 % (0.0-2.0); EOS # 0.2 K/uL (0.0-0.7); EOS % 1.6 % (0.0-4.0); HEMOGLOBIN 8.4 g/dL (12.0-18.0); LYMPH # 1.6 K/uL (1.0-4.3); LYMPH % 13.1 % (20.0-40.0); MEAN CELL VOLUME 82.3 fL (80.0-94.0); MEAN CORPUSCULAR HEMOGLOBIN 26.6 pg (27.0-31.0); MEAN CORPUSCULAR HGB CONC 32.3 g/dL (33.0-37.0); MEAN PLATELET VOLUME 7.5 fL (7.2-11.7); MONO # 0.8 K/uL (0.0-0.8); MONO % 6.8 % (0.0-10.0); NEUT # 9.3 K/uL (1.8-7.0); NEUT % 77.9 % (50.0-75.0); RBC 3.17 Mil/uL (4.40-5.90); RED CELL DISTRIBUTION WIDTH 21.2 % (11.5-14.5); WHITE BLOOD COUNT 11.9 K/uL (4.8-10.8)
--- NOTE | 2018-04-24 07:31 | CP.PCM.PN ---
Subjective - Date & Time of Evaluation Date of Evaluation: 04/24/18 Time of Evaluation: 07:31 - Subjective Subjective: PGY2 Medicine Note for Dr. Nieves Patient seen and examined this morning at bedside. No acute events overnight. Patient is resting comfortably in bed. He is tolerating his diet. Patient has no complaints at this time. ROS negative other than pain at this time. Objective - Vital Signs/Intake and Output Vital Signs (last 24 hours): Temp Pulse Resp BP Pulse Ox 98.6 F 111 H 20 100/71 99 04/23/18 23:30 04/23/18 23:30 04/23/18 23:30 04/23/18 23:30 04/23/18 23:30 Intake and Output: 04/24/18 04/24/18 06:59 18:59 Intake Total 350 Balance 350 - Medications Medications: Current Medications Diphenhydramine HCl (Benadryl) 50 mg IVP Q6 PRN PRN Reason: Itching / Pruritus Last Admin: 04/24/18 05:31 Dose: 50 mg Heparin Sodium (Porcine) (Heparin) 5,000 units SC Q12 [facility] Last Admin: 04/23/18 22:01 Dose: Not Given Hydromorphone HCl (Dilaudid) 2 mg IVP Q4H PRN PRN Reason: Pain, moderate (4-7) Last Admin: 04/24/18 05:32 Dose: 2 mg Tobramycin Sulfate 60 mg/ (Sodium Chloride) 101.5 mls @ 101.5 mls/hr IV Q12H [facility] PRN Reason: Protocol Last Admin: 04/23/18 21:50 Dose: 101.5 mls/hr Tigecycline 50 mg/ Dextrose 100 mls @ 100 mls/hr IVPB Q12H [facility] PRN Reason: Protocol Stop: 06/06/18 16:31 Last Admin: 04/24/18 05:29 Dose: 100 mls/hr Zolpidem Tartrate (Ambien) 5 mg PO HS PRN PRN Reason: Insomnia Last Admin: 04/23/18 21:50 Dose: 5 mg - Labs Labs: 04/24/18 06:46 04/23/18 07:20 PT 17.2 SECONDS (9.7-12.2) H 04/11/18 19:30 INR 1.6 04/11/18 19:30 APTT 38 SECONDS (21-34) H 04/12/18 07:58 - Constitutional Appears: Chronically Ill - Head Exam Head Exam: NORMOCEPHALIC - Eye Exam Eye Exam: Normal appearance - ENT Exam ENT Exam: Mucous Membranes Moist - Neck Exam Neck Exam: absent: Lymphadenopathy - Respiratory Exam Respiratory Exam: Clear to Ausculation Bilateral, NORMAL BREATHING PATTERN. absent: Accessory Muscle Use, Rales, Rhonchi, Wheezes, Respiratory Distress - Cardiovascular Exam Cardiovascular Exam: REGULAR RHYTHM, +S1, +S2 - GI/Abdominal Exam GI & Abdominal Exam: Soft. absent: Distended, Firm, Guarding, Rigid, Tenderness Additional comments: colostomy bag in place - Exam Exam: Scrotal Swelling (improving) - Extremities Exam Extremities Exam: absent: Calf Tenderness Additional comments: Left leg AKA - Back Exam Additional comments: Dressing in place over buttock/lower right back. - Neurological Exam Neurological Exam: Alert, Awake, CN II-XII Intact, Oriented x3 - Psychiatric Exam Psychiatric exam: Normal Affect, Normal Mood - Skin Skin Exam: Dry, Warm Additional comments: except as described on back exam Assessment and Plan - Assessment and Plan (Free Text) Plan: Sepsis 2/2 Sacral Decubitus Ulcer afebrile WBC to 11.9 * Bands resolved ID Consulted, Dr. Varghese - follow up recs * abx per ID * Patient likely has Osteomyelitis, will need total of 6 weeks of antibiotics * Tigecycline 50mg IVPB (started on 04/14) - End date 06/04/18 * Tobramycin 60mg IV q8h (started on 04/15) - End date 06/06/18 Surgery Consulted, Dr. Kim * Wound care per Surgery * cleared for dc CXR 04/11: Low lung volumes with mild crowded bronchovascular markings and minor bibasilar atelectasis. [id number] elevation of right hemidiaphragm could be due to eventration. Right IJ central venous line with tip in the right atrium. Sacral Wound Culture 04/11: grew 4 bacteria * E. Coli * Klebsiella Pneumoniae Ssp Pneu - ESBL * MRSA * Group G Strep Urine Culture 04/11: grew 2 bacteria * E. Coli * Beta hemolytic Strep group B Blood Cultures 04/12: Culture #1 * Acinetobacter Baumannii * Group G Strep Culture #2 * Acinetobacter Baumannii * Gram Positive Cocci --> most likely contamination * Group G Strep Wound Culture from [place] 04/14: * Klebsiella Pneumoniae Ssp Pneu - ESBL * Proteus Mirabilis Wound Culture from OR 04/15: * Klebsiella Pneumoniae Ssp Pneu - ESBL * Pseudomonas Aeruginosa * MRSA Blood Culture 04/17: * No growth after 5 days x 2 Wound Culture from OR 04/18 * Klebsiella Pneumoniae Ssp Pneu - ESBL Procal (04/14): 17.24 Lactic Acid (04/12): 1.6 Patient scheduled to have PICC line placed today. Meds: * Tigecycline 50mg IVPB q12h (started on 04/14) - End date 06/04/18 * Tobramycin 60mg IV q8h (started on 04/15) - End date 06/06/18 * Dilaudid 2mg IVP q4h prn * Patient was informed that he is not getting his pain medicine increased. He got very upset and demanded that Dr. Nieves be called and asked a second time for an increase in medication. Dr. Nieves stated that he does not want to increase any pain medicine at this time. Anemia Upon admission 7.4 Hgb stable 8.4 * transfused one unit of pRBCs on 04/17 * transfused one unit of pRBCs on 04/15 * transfused 2units of pRBCs on 04/12 Continue to monitor Hypokalemia (resolved) K+ 4.2 Continue to monitor Hypomagnesemia (resolved) Mg 1.6 Continue to monitor Prophylactic Care Heparin 5,000units SC q12h Ambien 5mg PO HS prn DISPO: Patient discharged on 04/24/18 with the follow instructions. Patient is to be discharged to [facility], per Dr. Nieves Patient is to follow up with Dr. Nieves within one week of discharge. Please call and schedule an appointment. Patient is to follow up with Dr. Kim (Surgery) within two weeks of discharge. Please call and schedule an appointment. Patient is to follow up with Dr. Varghese (Infectious Disease) within two weeks of discharge. Please call and schedule an appointment. Patient is to continue taking medications as directed * Tigecycline 50mg IVPB q12h (started on 04/14) - End date 06/04/18 * Tobramycin 60mg IV q8h (started on 04/15) - End date 06/06/18 Wound Care Instructions * Irrigate wound w NSS/H2O2 and place several NSS soaked Kerlix packings covering entire wound and cover w DSD every day to be down by wound care team daily If patient experiences any new or worsening symptoms, please go directly to the nearest emergency room. Case discussed with Dr. Nieves All medical management per Dr. Lizbeth Johnson Carito PGY2
[2018-04-24 07:36] LABS: ALB/GLOB RATIO 0.5 (1.0-2.1); ALBUMIN 1.5 g/dL (3.5-5.0); ALT/SGPT 25 U/L (21-72); AST/SGOT 23 U/L (17-59); BLOOD UREA NITROGEN 17 mg/dL (9-20); CALCIUM 6.8 mg/dl (8.6-10.4); GFR AFRICAN-AMERICAN > 60; GFR NON-AFRICAN AMERICAN > 60
[2018-04-24 09:02] VITALS: BP 109/69; PULSE 110; TEMP 98.7
[2018-04-24] MEDS: Tobramycin inj 60 MG in Sodium Chloride 0.9% 100 ML IV SCH (09:56)
== END 2018-04-24 17:08 | DRG 263 ==
LOC: C.ER 17:20 → C.9E 20:33 → C.6T 21:50
PROVIDERS: ADMIT Internal Medicine Pulmonary Disease; ATTEND Internal Medicine Pulmonary Disease
PROC: 0JBM0ZZ Excision of Left Upper Leg Subcutaneous Tissue and Fascia, Open Approach (ICD-10-PCS; 2018-04-14)
PROC: 0Q9 Lower Bones, Drainage (ICD-10-PCS; 2018-04-14)
PROC: 0JB70ZZ Excision of Back Subcutaneous Tissue and Fascia, Open Approach (ICD-10-PCS; principal; 2018-04-14 12:30)
PROC: 0JB70ZZ Excision of Back Subcutaneous Tissue and Fascia, Open Approach (ICD-10-PCS; 2018-04-15)
PROC: 0Q9 Lower Bones, Drainage (ICD-10-PCS; 2018-04-15)
PROC: 0JB90ZZ Excision of Buttock Subcutaneous Tissue and Fascia, Open Approach (ICD-10-PCS; 2018-04-15)
PROC: 0JB70ZZ Excision of Back Subcutaneous Tissue and Fascia, Open Approach (ICD-10-PCS; 2018-04-16)
PROC: 0Q913ZZ Drainage of Sacrum, Percutaneous Approach (ICD-10-PCS; 2018-04-16)
PROC: 0HRJXK3 Replacement of Left Upper Leg Skin with Nonautologous Tissue Substitute, Full Thickness, External Approach (ICD-10-PCS; 2018-04-18)
PROC: 0HR8XK3 Replacement of Buttock Skin with Nonautologous Tissue Substitute, Full Thickness, External Approach (ICD-10-PCS; 2018-04-18)
PROC: 0JB70ZZ Excision of Back Subcutaneous Tissue and Fascia, Open Approach (ICD-10-PCS; 2018-04-18)
PROC: 0JB70ZZ Excision of Back Subcutaneous Tissue and Fascia, Open Approach (ICD-10-PCS; 2018-04-18)
PROC: 30233N1 Transfusion of Nonautologous Red Blood Cells into Peripheral Vein, Percutaneous Approach (ICD-10-PCS; 2018-04-18)
PROC: 02HV33Z Insertion of Infusion Device into Superior Vena Cava, Percutaneous Approach (ICD-10-PCS; 2018-04-23)
DX: L89.154 Pressure ulcer of sacral region, stage 4 (principal); N39.0 Urinary tract infection, site not specified; T81.30XA Disruption of wound, unspecified, initial encounter; L02.212 Cutaneous abscess of back [any part, except buttock and flank]; E87.6 Hypokalemia; T87.81 Dehiscence of amputation stump; M46.28 Osteomyelitis of vertebra, sacral and sacrococcygeal region; L89.329 Pressure ulcer of left buttock, unspecified stage; L89.229 Pressure ulcer of left hip, unspecified stage; G82.20 Paraplegia, unspecified; I73.9 Peripheral vascular disease, unspecified; D64.9 Anemia, unspecified; E83.42 Hypomagnesemia; E83.51 Hypocalcemia; N50.89 Other specified disorders of the male genital organs; Z89.612 Acquired absence of left leg above knee; Z93.3 Colostomy status; Z99.3 Dependence on wheelchair; Z91.19 Patient's noncompliance with other medical treatment and regimen; Z88.0 Allergy status to penicillin

== ENCOUNTER 2018-04-24 22:08 | Inpatient (IN) | payer MEDICAID ==
--- NOTE | 2018-04-24 22:42 | C.PDOC ---
History Of Present Illness Patient [facility] because they ran out of his pain medication. 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 Denies fever, chills, nausea, or vomiting. Time Seen by Provider: 04/24/18 22:42 Chief Complaint (Nursing): Pain, Chronic History Per: Patient History/Exam Limitations: no limitations Onset/Duration Of Symptoms: Hrs Current Symptoms Are (Timing): Still Present Severity: Severe Pain Scale Rating Of: 8 Reports Recently: Seen In ED, Treated By A Physician, Hospitalized Recent travel outside of the [place]: No Additional History Per: Patient Past Medical History Reviewed: Historical Data, Nursing Documentation, Vital Signs Vital Signs: Last Vital Signs Temp 98.4 F 04/25/18 01:15 Pulse 105 H 04/25/18 01:15 Resp 19 04/25/18 01:15 BP 102/66 04/25/18 01:15 Pulse Ox 100 04/25/18 05:07 - Medical History PMH: Fractures (left lower extremity.) Denies: Chronic Kidney Disease - [facility] Procedures CENTRAL VENOUS CATHETER PLACEMENT WITH GUIDANCE (04/13/14) INJECT/INFUSE NEC (04/09/14) TETANUS TOXOID ADMINIST (04/03/14) Family History: States: Unknown Family Hx - Social History Hx Tobacco Use: No Hx Alcohol Use: No Hx Substance Use: No - Immunization History Hx Tetanus Toxoid Vaccination: No Hx Influenza Vaccination: No Hx Pneumococcal Vaccination: No Review Of Systems Constitutional: Negative for: Fever, Chills Cardiovascular: Negative for: Chest Pain, Palpitations Respiratory: Negative for: Cough, Shortness of Breath Gastrointestinal: Negative for: Nausea, Vomiting Genitourinary: Negative for: Dysuria Musculoskeletal: Positive for: Back Pain, Leg Pain Skin: Positive for: Rash, Lesions, Other (Chronic ulcer) Neurological: Negative for: Weakness Psych: Negative for: Anxiety Physical Exam - Physical Exam Appears: In Acute Distress Skin: Warm, Dry, Ecchymosis Head: Normacephalic Oral Mucosa: Moist Neck: Supple Chest: Symmetrical, No Tenderness Cardiovascular: Rhythm Regular Respiratory: No Rales, No Rhonchi, No Wheezing Gastrointestinal/Abdominal: Soft, No Tenderness, Distention, Other (Left lower quadrant colostomy) Back: Other ([id number] 7in deep chronic sacral ulcer) Extremity: Other (Left AKA) Neurological/Psych: Oriented x3 Gait: Unable To Assess ED Course And Treatment - Laboratory Results Result Diagrams: 04/24/18 23:23 04/24/18 23:23 O2 Sat by Pulse Oximetry: 100 (Room air) Pulse Ox Interpretation: Normal Progress Note: Benadryl and dilaudid administered. Disposition Discussed With : Savita Nieves Comment: accepted the pt on his service and took over the care at Doctor Will See Patient In The: Hospital Counseled Patient/Family Regarding: Studies Performed, Diagnosis - Disposition Disposition: HOSPITALIZED Disposition Time: 22:42 Condition: FAIR - Clinical Impression Clinical Impression: Chronic intractable pain, Decubitus ulcer of sacral region, unstageable - Scribe Statement The provider has reviewed the documentation as recorded by the Scribe Arthur Servin All medical record entries made by the Scribe were at my direction and personally dictated by me. I have reviewed the chart and agree that the record accurately reflects my personal performance of the history, physical exam, medical decision making, and the department course for this patient. I have also personally directed, reviewed, and agree with the discharge instructions and disposition. Decision To Admit - Pt Status Changed To: Hospital Disposition Of: Inpatient - Admit Certification Admit to Inpatient:: After my assessment, the patient will require hospitalization for at least two midnights. This is because of the severity of symptoms shown, intensity of services needed, and/or the medical risk in this patient being treated as an outpatient. - InPatient: Physician Admission Certification: I certify that this patient requires 2 or more midnights of care for the following reason:: After my assessment, the patient will require hospitalization for at least two midnights. This is because of the severity of symptoms shown, intensity of services needed, and/or the medical risk in this patient being treated as an outpatient. - . Bed Request Type: Regular Admitting Physician: Savita Nieves Patient Diagnosis: Chronic intractable pain, Decubitus ulcer of sacral region, unstageable
[2018-04-24] MEDS ORDERED: DiphenhydrAMINE 50 mg/ml Inj IVP STA (22:49)
[2018-04-24] MEDS ORDERED: Sodium Chloride 0.9% 1,000 ML IV ONE (22:56)
[2018-04-24] MEDS ORDERED: DiphenhydrAMINE 50 mg/ml Inj ONE (23:10)
[2018-04-24] MEDS ORDERED: Sodium Chloride 0.9% 1,000 ML ONE (23:10)
[2018-04-24 23:37] LABS: BLOOD UREA NITROGEN 15 mg/dL (9-20); CALCIUM 7.1 mg/dl (8.6-10.4); GFR AFRICAN-AMERICAN > 60; GFR NON-AFRICAN AMERICAN > 60
[2018-04-25 00:21] LABS: BASO % 0.3 % (0.0-2.0); EOS % 0.4 % (0.0-4.0); HEMOGLOBIN 9.1 g/dL (12.0-18.0); LYMPH # 1.4 K/uL (1.0-4.3); LYMPH % 11.5 % (20.0-40.0); MEAN CELL VOLUME 81.6 fL (80.0-94.0); MEAN CORPUSCULAR HEMOGLOBIN 26.3 pg (27.0-31.0); MEAN CORPUSCULAR HGB CONC 32.2 g/dL (33.0-37.0); MEAN PLATELET VOLUME 7.7 fL (7.2-11.7); MONO # 0.9 K/uL (0.0-0.8); MONO % 7.2 % (0.0-10.0); NEUT # 10.1 K/uL (1.8-7.0); NEUT % 80.6 % (50.0-75.0); RBC 3.48 Mil/uL (4.40-5.90); RED CELL DISTRIBUTION WIDTH 21.1 % (11.5-14.5); WHITE BLOOD COUNT 12.5 K/uL (4.8-10.8)
[2018-04-25] MEDS: Tigecycline 50 MG in Dextrose 5% In Water 100 ML IVPB SCH ×2 (00:30→10:26)
[2018-04-25] MEDS ORDERED: Tobramycin inj 60 MG in Sodium Chloride 0.9% 100 ML IV SCH ×2 (06:00→18:00)
--- NOTE | 2018-04-25 07:50 | CP.PCM.PN ---
Subjective - Date & Time of Evaluation Date of Evaluation: 04/25/18 Time of Evaluation: 07:49 - Subjective Subjective: PGY-[address] Nieves's Service Patient seen and examined at bedside . Per nursing no acute events occurred overnight. Patient reports some sacral pain at the time of examination. Patient denies any fevers, chills, nausea, vomiting, chest pain, or any other complaints. Objective - Vital Signs/Intake and Output Vital Signs (last 24 hours): Temp Pulse Resp BP Pulse Ox 98.4 F 105 H 19 102/66 100 04/25/18 01:15 04/25/18 01:15 04/25/18 01:15 04/25/18 01:15 04/25/18 05:08 - Medications Medications: Current Medications Tigecycline 50 mg/ Dextrose 100 mls @ 100 mls/hr IVPB Q12H [facility] PRN Reason: Protocol Last Admin: 04/25/18 00:30 Dose: 100 mls/hr Tobramycin Sulfate 60 mg/ (Sodium Chloride) 101.5 mls @ 101.5 mls/hr IVPB Q8 [facility] Stop: 04/25/18 22:59 Last Admin: 04/25/18 06:34 Dose: 101.5 mls/hr Morphine Sulfate (Morphine) 10 mg IV Q4H [facility] Stop: 04/25/18 08:16 Last Admin: 04/25/18 04:26 Dose: 10 mg - Labs Labs: 04/24/18 23:23 04/24/18 23:23 - Head Exam Head Exam: ATRAUMATIC, NORMAL INSPECTION, NORMOCEPHALIC - Eye Exam Eye Exam: EOMI, Normal appearance, PERRL Pupil Exam: NORMAL ACCOMODATION - ENT Exam ENT Exam: Mucous Membranes Moist, Normal Oropharynx - Cardiovascular Exam Cardiovascular Exam: REGULAR RHYTHM, +S1, +S2 - GI/Abdominal Exam GI & Abdominal Exam: Normal Bowel Sounds - Neurological Exam Neurological Exam: Alert, Awake, CN II-XII Intact, Oriented x3 - Psychiatric Exam Psychiatric exam: Normal Affect, Normal Mood - Skin Skin Exam: Dry, Intact Assessment and Plan - Assessment and Plan (Free Text) Plan: Sacral Decubitus Ulcer Stable, Afebrile ID Consulted, Dr. Varghese * Abx per ID * Azreonam 500mg IVPB q8h (started on 04/12) - Discontinued * Tigecycline 50mg IVPB (started on 04/14) * Tobramycin 60mg IV q12h (started on 04/15) Surgery Consulted, Dr. Kim * Scheduled for OR today * Currently NPO CXR 04/11: Low lung volumes with mild crowded bronchovascular markings and minor bibasilar atelectasis. [id number] elevation of right hemidiaphragm could be due to eventration. Right IJ central venous line with tip in the right atrium. Sacral Wound Culture 04/11: grew 4 bacteria * E. Coli * Klebsiella Pneumoniae Ssp Pneu - ESBL * MRSA * Group G Strep Urine Culture 04/11: grew 2 bacteria * E. Coli * Beta hemolytic Strep group B Blood Cultures 04/12: Culture #1 * Acinetobacter Baumannii * Group G Strep Culture #2 * Acinetobacter Baumannii * Gram Positive Cocci --> most likely contamination * Group G Strep Repeat Blood cultures 04/17: no growth x 24 hours Wound Culture from [place] 04/14: * Klebsiella Pneumoniae Ssp Pneu - ESBL * Proteus Mirabilis Wound Culture from [place] 04/15: * Gram Neg Jean-Paul * Gram Neg Jean-Paul #2 * Gram Positive Cocci Procal (04/14): 17.24 Lactic Acid (04/12): 1.6 Patient is refusing echocardiogram repeatedly CT pelvis ordered, to rule out osteomyelitis of the sacrum Continue current management. Meds: * Azreonam 500mg IVPB q8h (started on 04/12) - Discontinued * Tigecycline 50mg IVPB q12h (started on 04/14) * Tobramycin 60mg IV q12h (started on 04/15) * Dilaudid 2mg IVP q4h prn * D5/NS @75mL/hr Anemia Upon admission 7.4 Hgb dropped from 9.0 (04/16) to 7.7 today * transfused one unit of pRBCs on 04/17 * transfused one unit of pRBCs on 04/15 * transfused 2units of pRBCs on 04/12 Continue to monitor Hypokalemia Attempted to replete - patient refused oral potassium Was given 20 meq Kcl IVBP x 2 Continue to monitor Hypomagnesemia Repleted Continue to monitor Hypocalcemia -Serum calcium 6.0, corrected calcium for low albumin 7.6 -Will continue to monitor Prophylactic Care Heparin 5,000units SC q12h Ambien 5mg PO HS prn Case discussed with Dr. Nieves All medical management per Dr. Lizbeth Ferguson, PGY-2
[2018-04-25] MEDS ORDERED: DiphenhydrAMINE 12.5 mg/5 ml LIQ UD (5 ml) PO ONE (13:30)
--- NOTE | 2018-04-25 17:17 | CP.PCM.CON ---
History of Present Illness - History of Present Illness History of Present Illness: 47 year old male presents to ED with complaints of infected wound to buttocks Patient has wound to sacral area for 2 years and states he was [place] Dr. Nieves [place] [facility] for [place], but left AMA Was recently here and had 5 debridements for infected w=ound with maggots had MDRO Bacteremia - Acinetobacter Recently d/c to [place] but returns with ongoing infection PMHx includes paraplegia secondary to spinal cord injury, sacral ulcers, colostomy left leg amputaion, LLE fracture Patient noted to use a wheel chair due to left leg amputation and paraplegia. - Medical History PMH: Fractures (left lower extremity.) Denies: Chronic Kidney Disease Other PMH: sacral ulcers, paraplegia secondary to spinal cord injury - Medical History PMH: Fractures (left lower extremity.) Other Surgeries: Left AKA Family History: States: No Known Family Hx Review of Systems - Review of Systems All systems: reviewed and no additional remarkable complaints except - Constitutional Constitutional: As Per HPI - EENT Eyes: absent: As Per HPI, Blind Spots, Blurred Vision, Change in Vision, Decreased Night Vision, Diplopia, Discharge, Dry Eye, Exophthalmos, Floaters, Irritation, Itchy Eyes, Loss of Peripheral Vision, Pain, Photophobia, Requires Corrective Lenses, Sees Flashes, Spots in Vision, Tunnel Vision, Other Visual Disturbances, Loss of Vision, Other Ears: absent: As Per HPI, Decreased Hearing, Ear Discharge, Ear Pain, Tinnitus, Abnormal Hearing, Disequilibrium, Dizziness, Other Nose/Mouth/Throat: absent: As Per HPI, Epistaxis, Nasal Congestion, Nasal Discharge, Nasal Obstruction, Nasal Trauma, Nose Pain, Post Nasal Drip, Sinus Pain, Sinus Pressure, Bleeding Gums, Change in Voice, Dental Pain, Dry Mouth, Dysphagia, Halitosis, Hoarsness, Lip Swelling, Mouth Lesions, Mouth Pain, Odynophagia, Sore Throat, Throat Swelling, Tongue Swelling, Facial Pain, Neck Pain, Neck Mass, Other - Cardiovascular Cardiovascular: absent: As Per HPI, Acrocyanosis, Chest Pain, Chest Pain at Rest , Chest Pain with Activity, Claudication, Diaphoresis, Dyspnea, Dyspnea on Exertion, Edema, Irregular Heart Rhythm, Pain Radiating to Arm/Neck/Jaw, Leg Edema, Leg Ulcers, Lightheadedness, Orthopnea, Palpitations, Paroxysmal Nocturnal Dyspnea, Pedal Edema, Radiating Pain, Rapid Heart Rate, Slow Heart Rate, Syncope, Other - Respiratory Respiratory: absent: As Per HPI, Cough, Dyspnea, Hemoptysis, Dyspnea on Exertion , Wheezing, Snoring, Stridor, Pain on Inspiration, Chest Congestion, Excessive Mucous Production, Change in Mucous Color, Pain with Coughing, Other - Gastrointestinal Gastrointestinal: absent: As Per HPI, Abdominal Pain, Belching, Bloating, Change in Bowel Habits, Change in Stool Character, Coffee Ground Emesis, Constipation, Cramping, Diarrhea, Dyspepsia, Dysphagia, Early Satiety, Excessive Flatus, Fecal Incontinence, Heartburn, Hematemesis, Hematochezia, Loose Stools, Melena, Nausea, Odynophagia, Temesmus, Vomiting, Other - Genitourinary Genitourinary: absent: As Per HPI, Change in Urinary Stream, Difficulty Urinating, Dysuria, Flank Pain, Hematuria, Pyuria, Nocturia, Urinary Incontinence, Urinary Frequency, Urinary Hesitance, Urinary Urgency, Voiding Freq/Small Amts, Freq UTI, Hx Renal/Bladder Calculi, Hx /Renal Surgery, Bladder Distension, Other - Musculoskeletal Musculoskeletal: As Per HPI - Integumentary Integumentary: As Per HPI, Skin Pain, Wounds - Neurological Neurological: As Per HPI - Psychiatric Psychiatric: absent: As Per HPI, Abnormal Sleep Pattern, Anhedonia, Anxiety, Auditory Hallucinations, Behavioral Changes, Change in Appetite, Change in Libido, Confusion, Depression, Difficulty Concentrating, Hallucinations, Homicidal Ideation, Hopelessness, Irritability, Memory Loss, Mood Swings, Panic Attacks, Paranoia, Suicidal Ideation, Visual Hallucinations, Tactile Hallucinations, Other - Endocrine Endocrine: absent: As Per HPI, Change in Body Appearance, Change in Libido, Cold Intolorance, Deepening of Voice, Excessive Sweating, Fatigue, Flushing, Heat Intolorance, Increase in Ring/Shoe/Hat Size, Palpitations, Polydipsia, Polyphagia, Polyuria, Other - Hematologic/Lymphatic Hematologic: absent: As Per HPI, Easy Bleeding, Easy Bruising, Lymphadenopathy, Other Past Patient History - Infectious Disease Hx of Infectious Diseases: None - Past Medical History & Family History Past Medical History?: Yes - Past Social History Smoking Status: Never Smoked - CARDIAC Hx Cardiac Disorders: No - PULMONARY Hx Respiratory Disorders: No - NEUROLOGICAL Hx Neurological Disorder: No - HEENT Hx HEENT Problems: No - RENAL Hx Chronic Kidney Disease: No - ENDOCRINE/METABOLIC Hx Endocrine Disorders: No - HEMATOLOGICAL/ONCOLOGICAL Hx Blood Disorders: No - INTEGUMENTARY Hx Dermatological Problems: Yes (Left buttocks/sacral/scrotal decubitus, Ulcers to Right foot) - MUSCULOSKELETAL/RHEUMATOLOGICAL Hx Fractures: Yes (left lower extremity.) - GASTROINTESTINAL Hx Bowel Surgery: Yes Hx Colostomy: Yes (LEFT COLOSTOMY) - GENITOURINARY/GYNECOLOGICAL Hx Genitourinary Disorders: No - PSYCHIATRIC Hx Substance Use: No - SURGICAL HISTORY Hx Surgeries: Yes Other/Comment: Hx LLE Amputation. Hx Left colostomy. DEBRIDEMENT OF DEEP TISSUE INJURY TO LOWER BACK - ANESTHESIA Hx Anesthesia: Yes Hx Anesthesia Reactions: No Hx Malignant Hyperthermia: No Meds Allergies/Adverse Reactions: Allergies Allergy/AdvReac Type Severity Reaction Status Date / Time Penicillins Allergy RASH Verified 04/24/18 22:22 - Medications Medications: Current Medications Heparin Sodium (Porcine) (Heparin) 5,000 units SC Q12 [facility] Last Admin: 04/25/18 10:26 Dose: 5,000 units Tobramycin Sulfate 60 mg/ (Sodium Chloride) 101.5 mls @ 101.5 mls/hr IVPB Q8 [facility] Stop: 04/25/18 22:59 Last Admin: 04/25/18 14:07 Dose: 101.5 mls/hr Tigecycline 50 mg/ Dextrose 100 mls @ 100 mls/hr IVPB Q12H [facility] PRN Reason: Protocol Morphine Sulfate (Morphine) 6 mg IVP Q4H PRN PRN Reason: Pain, severe (8-10) Physical Exam - Constitutional Appears: No Acute Distress, Cachectic, Chronically Ill - Head Exam Head Exam: NORMOCEPHALIC - Eye Exam Eye Exam: PERRL. absent: Scleral icterus - ENT Exam ENT Exam: Mucous Membranes Dry - Neck Exam Neck exam: Negative for: Lymphadenopathy - Respiratory Exam Respiratory Exam: Decreased Breath Sounds, Rhonchi - Cardiovascular Exam Cardiovascular Exam: REGULAR RHYTHM, +S1, +S2 - GI/Abdominal Exam GI & Abdominal Exam: Diminished Bowel Sounds, Soft. absent: Tenderness Additional comments: + colostomy - Rectal Exam Rectal Exam: Deferred Additional comments: large sacral wound IV - Exam Exam: Scrotal Swelling - Extremities Exam Extremities exam: Positive for: pedal edema. Negative for: calf tenderness, pedal pulses present Additional comments: left AKA - Back Exam Back exam: absent: CVA tenderness (L), CVA tenderness (R) - Neurological Exam Neurological exam: Alert, CN II-XII Intact, Reflexes Normal - Psychiatric Exam Psychiatric exam: Depressed - Skin Skin Exam: Dry Results - Vital Signs Recent Vital Signs: Last Vital Signs Temp 98.2 F 04/25/18 15:10 Pulse 107 H 04/25/18 15:10 Resp 20 04/25/18 15:10 BP 107/67 04/25/18 15:10 Pulse Ox 99 04/25/18 15:10 - Labs Result Diagrams: 04/24/18 23:23 04/24/18 23:23 Labs: Laboratory Results - last 24 hr 04/24/18 04/24/18 23:23 23:23 WBC 12.5 H RBC 3.48 L Hgb 9.1 L Hct 28.4 L MCV 81.6 MCH 26.3 L MCHC 32.2 L RDW 21.1 H Plt Count 303 MPV 7.7 Neut % (Auto) 80.6 H Lymph % (Auto) 11.5 L Wilson % (Auto) 7.2 Eos % (Auto) 0.4 Baso % (Auto) 0.3 Neut # (Auto) 10.1 H Lymph # (Auto) 1.4 Wilson # (Auto) 0.9 H Eos # (Auto) 0.0 Baso # (Auto) 0.0 Sodium 136 Potassium 4.0 Chloride 106 Carbon Dioxide 24 Anion Gap 10 BUN 15 Creatinine 0.8 Est GFR ( Amer) > 60 Est GFR (Non-Af Amer) > 60 Random Glucose 75 Calcium 7.1 L Assessment & Plan (1) Chronic intractable pain Status: Acute (2) Decubitus ulcer of sacral region, unstageable Status: Acute (3) Cellulitis Status: Acute (4) Sacral decubitus ulcer, stage IV Status: Acute (5) Sepsis affecting skin Status: Acute (6) Skin ulcer Status: Acute (7) UTI (urinary tract infection) Status: Acute (8) MDR Acinetobacter baumannii infection Status: Acute (9) MDR Acinetobacter baumannii infection Status: Acute (10) Carbapenem-resistant Acinetobacter baumannii infection Status: Acute (11) Carbapenem-resistant Acinetobacter baumannii infection Status: Acute (12) Osteomyelitis of sacrum Status: Acute
[2018-04-26] MEDS: Tobramycin inj 60 MG in Sodium Chloride 0.9% 100 ML IV SCH ×2 (02:25→13:30)
[2018-04-27] MEDS: Tobramycin inj 60 MG in Sodium Chloride 0.9% 100 ML IV SCH ×2 (02:14→13:40)
--- NOTE | 2018-04-27 15:44 | CP.PCM.PN ---
Subjective - Date & Time of Evaluation Date of Evaluation: 04/27/18 Time of Evaluation: 09:00 - Subjective Subjective: afeb on tigecyl has scrotal edema wounds noted dr salazar to lorna Objective - Vital Signs/Intake and Output Vital Signs (last 24 hours): Temp Pulse Resp BP Pulse Ox 99.4 F 110 H 18 103/66 97 04/27/18 07:00 04/27/18 07:00 04/27/18 07:00 04/27/18 07:00 04/27/18 07:00 Intake and Output: 04/27/18 04/27/18 06:59 18:59 Intake Total 700 Balance 700 - Medications Medications: Current Medications Heparin Sodium (Porcine) (Heparin) 5,000 units SC Q12 [facility] Last Admin: 04/27/18 09:15 Dose: Not Given Tigecycline 50 mg/ Sodium (Chloride) 100 mls @ 100 mls/hr IVPB Q12H [facility] PRN Reason: Protocol Last Admin: 04/27/18 10:01 Dose: 100 mls/hr Tobramycin Sulfate 60 mg/ (Sodium Chloride) 101.5 mls @ 100 mls/hr IV Q12H [facility] PRN Reason: Protocol Last Admin: 04/27/18 13:40 Dose: 100 mls/hr Morphine Sulfate (Morphine) 6 mg IVP Q4H PRN PRN Reason: Pain, severe (8-10) Last Admin: 04/27/18 12:53 Dose: 6 mg - Labs Labs: 04/24/18 23:23 04/24/18 23:23 - Constitutional Appears: Non-toxic, Chronically Ill - Head Exam Head Exam: NORMOCEPHALIC - Eye Exam Eye Exam: PERRL - ENT Exam ENT Exam: Mucous Membranes Dry - Neck Exam Neck Exam: absent: Lymphadenopathy - Respiratory Exam Respiratory Exam: Decreased Breath Sounds - Cardiovascular Exam Cardiovascular Exam: REGULAR RHYTHM - GI/Abdominal Exam GI & Abdominal Exam: Distended Additional comments: + colostomy - Extremities Exam Extremities Exam: Pedal Edema Additional comments: left AKA - Back Exam Back Exam: absent: CVA tenderness (L), CVA tenderness (R) - Neurological Exam Neurological Exam: Alert, Awake Assessment and Plan (1) Chronic intractable pain Status: Acute (2) Decubitus ulcer of sacral region, unstageable Status: Acute (3) Cellulitis Status: Acute (4) Sacral decubitus ulcer, stage IV Status: Acute (5) Sepsis affecting skin Status: Acute (6) Skin ulcer Status: Acute (7) UTI (urinary tract infection) Status: Acute (8) MDR Acinetobacter baumannii infection Status: Acute (9) MDR Acinetobacter baumannii infection Status: Acute (10) Carbapenem-resistant Acinetobacter baumannii infection Status: Acute (11) Carbapenem-resistant Acinetobacter baumannii infection Status: Acute (12) Osteomyelitis of sacrum Status: Acute
[2018-04-28 00:40] VITALS: RESP 20
[2018-04-28] MEDS: Tobramycin inj 60 MG in Sodium Chloride 0.9% 100 ML IV SCH (01:26)
--- NOTE | 2018-04-28 07:23 | CP.PCM.PN ---
Subjective - Date & Time of Evaluation Date of Evaluation: 04/28/18 Time of Evaluation: 07:21 - Subjective Subjective: PGY-[address] Nieves's Service Patient seen and examined at bedside. Per nursing no acute events occurred overnight. Patient reports some sacral pain today upon examination. Patient denies any fevers, chills, nausea, vomiting, chest pain, headaches, changes in vision, or any other complaints. Objective - Vital Signs/Intake and Output Vital Signs (last 24 hours): Temp Pulse Resp BP Pulse Ox 98.4 F 95 H 20 117/73 100 04/27/18 23:20 04/27/18 23:20 04/27/18 23:20 04/27/18 23:20 04/27/18 23:20 Intake and Output: 04/28/18 04/28/18 06:59 18:59 Output Total 200 Balance -200 - Medications Medications: Current Medications Heparin Sodium (Porcine) (Heparin) 5,000 units SC Q12 [facility] Last Admin: 04/27/18 23:05 Dose: Not Given Tigecycline 50 mg/ Sodium (Chloride) 100 mls @ 100 mls/hr IVPB Q12H [facility] PRN Reason: Protocol Last Admin: 04/27/18 23:04 Dose: 100 mls/hr Tobramycin Sulfate 60 mg/ (Sodium Chloride) 101.5 mls @ 100 mls/hr IV Q12H [facility] PRN Reason: Protocol Last Admin: 04/28/18 01:26 Dose: 100 mls/hr Morphine Sulfate (Morphine) 6 mg IVP Q4H PRN PRN Reason: Pain, severe (8-10) - Labs Labs: 04/24/18 23:23 04/24/18 23:23 - Head Exam Head Exam: ATRAUMATIC, NORMAL INSPECTION, NORMOCEPHALIC - Eye Exam Eye Exam: EOMI, Normal appearance, PERRL Pupil Exam: NORMAL ACCOMODATION - ENT Exam ENT Exam: Mucous Membranes Moist, Normal Oropharynx - Respiratory Exam Respiratory Exam: Clear to Ausculation Bilateral, NORMAL BREATHING PATTERN - Cardiovascular Exam Cardiovascular Exam: REGULAR RHYTHM, +S1, +S2 - GI/Abdominal Exam GI & Abdominal Exam: Soft, Normal Bowel Sounds - Neurological Exam Neurological Exam: Alert, Awake, CN II-XII Intact, Oriented x3 - Psychiatric Exam Psychiatric exam: Normal Affect, Normal Mood - Skin Skin Exam: Dry, Intact, Normal Color, Warm Assessment and Plan - Assessment and Plan (Free Text) Plan: Sacral Decubitus Ulcer Stable, Afebrile ID Consulted, Dr. Varghese - follow up recs * abx per ID * Patient likely has Osteomyelitis, will need total of 6 weeks of antibiotics * Tigecycline 50mg IVPB (started on 04/14) - End date 06/04/18 * Tobramycin 60mg IV q8h (started on 04/15) - End date 06/06/18 Surgery Consulted, Dr. Kim * Scheduled for OR today * Currently NPO CXR 04/11: Low lung volumes with mild crowded bronchovascular markings and minor bibasilar atelectasis. [id number] elevation of right hemidiaphragm could be due to eventration. Right IJ central venous line with tip in the right atrium. Sacral Wound Culture 04/11: grew 4 bacteria * E. Coli * Klebsiella Pneumoniae Ssp Pneu - ESBL * MRSA * Group G Strep Urine Culture 04/11: grew 2 bacteria * E. Coli * Beta hemolytic Strep group B Blood Cultures 04/12: Culture #1 * Acinetobacter Baumannii * Group G Strep Culture #2 * Acinetobacter Baumannii * Gram Positive Cocci --> most likely contamination * Group G Strep Repeat Blood cultures 04/17: no growth x 24 hours Wound Culture from OR 04/14: * Klebsiella Pneumoniae Ssp Pneu - ESBL * Proteus Mirabilis Wound Culture from OR 04/15: * Gram Neg Jean-Paul * Gram Neg Jean-Paul #2 * Gram Positive Cocci Procal (04/14): 17.24 Lactic Acid (04/12): 1.6 Patient is refusing echocardiogram repeatedly CT pelvis ordered, to rule out osteomyelitis of the sacrum Wound Care per Dr Kim, he will meet with wound care team on Saturday to assess wound and instruct care Anemia Hgb dropped from 9.0 (04/16) to 7.7 today * transfused one unit of pRBCs on 04/17 * transfused one unit of pRBCs on 04/15 * transfused 2units of pRBCs on 04/12 Hgb is 8.6 today Continue to monitor Hypokalemia Resolved Continue to monitor Prophylactic Care Heparin 5,000units SC q12h Ambien 5mg PO HS prn Case discussed with Dr. Elamir All medical management per Dr. Nieves Dispo: Patient expected to be discharged to [facility] with IV Tigecycline and Tobramycin to be completed June 04 and June 06 Respectively. Flaquito Ferguson, PGY-2
[2018-04-28 07:34] LABS: BASO # 0.1 K/uL (0.0-0.2); BASO % 0.8 % (0.0-2.0); EOS # 0.1 K/uL (0.0-0.7); HEMOGLOBIN 8.6 g/dL (12.0-18.0); LYMPH # 1.1 K/uL (1.0-4.3); LYMPH % 14.2 % (20.0-40.0); MEAN CELL VOLUME 81.6 fL (80.0-94.0); MEAN CORPUSCULAR HGB CONC 33.1 g/dL (33.0-37.0); MONO # 0.7 K/uL (0.0-0.8); MONO % 9.3 % (0.0-10.0); NEUT # 5.8 K/uL (1.8-7.0); NEUT % 74.7 % (50.0-75.0); RBC 3.18 Mil/uL (4.40-5.90); RED CELL DISTRIBUTION WIDTH 20.9 % (11.5-14.5); WHITE BLOOD COUNT 7.8 K/uL (4.8-10.8)
[2018-04-28 08:26] LABS: ALB/GLOB RATIO 0.4 (1.0-2.1); ALBUMIN 1.6 g/dL (3.5-5.0); ALT/SGPT 23 U/L (21-72); AST/SGOT 23 U/L (17-59); BLOOD UREA NITROGEN 14 mg/dL (9-20); CALCIUM 6.8 mg/dl (8.6-10.4); GFR AFRICAN-AMERICAN > 60; GFR NON-AFRICAN AMERICAN > 60
[2018-04-28] MEDS: Morphine 4 MG/ML VIAL IVP PRN ×4 (10:24→22:53)
--- NOTE | 2018-04-28 11:49 | PN ---
DATE: 04/27/2018 IV antibiotic, wound care. Savita Nieves MD [facility] # [id number]
--- NOTE | 2018-04-28 12:26 | CP.PCM.PN ---
Subjective - Date & Time of Evaluation Date of Evaluation: 04/28/18 Time of Evaluation: 09:00 - Subjective Subjective: DISCUSSED ON ROUNDS AFEB NAD IV RX ADJUSTED Objective - Vital Signs/Intake and Output Vital Signs (last 24 hours): Temp Pulse Resp BP Pulse Ox 98.1 F 80 20 97/69 L 96 04/28/18 07:30 04/28/18 07:30 04/28/18 07:30 04/28/18 07:30 04/28/18 07:30 Intake and Output: 04/28/18 04/28/18 06:59 18:59 Output Total 200 Balance -200 - Medications Medications: Current Medications Heparin Sodium (Porcine) (Heparin) 5,000 units SC Q12 [facility] Last Admin: 04/28/18 10:26 Dose: 5,000 units Tigecycline 50 mg/ Sodium (Chloride) 100 mls @ 100 mls/hr IVPB Q12H [facility] PRN Reason: Protocol Last Admin: 04/28/18 10:25 Dose: 100 mls/hr Morphine Sulfate (Morphine) 6 mg IVP Q4H PRN PRN Reason: Pain, severe (8-10) Last Admin: 04/28/18 10:24 Dose: 6 mg - Labs Labs: 04/28/18 07:20 04/28/18 07:20 Assessment and Plan (1) Chronic intractable pain Status: Acute (2) Decubitus ulcer of sacral region, unstageable Status: Acute (3) Cellulitis Status: Acute (4) Sacral decubitus ulcer, stage IV Status: Acute (5) Sepsis affecting skin Status: Acute (6) Skin ulcer Status: Acute (7) UTI (urinary tract infection) Status: Acute (8) MDR Acinetobacter baumannii infection Status: Acute (9) MDR Acinetobacter baumannii infection Status: Acute (10) Carbapenem-resistant Acinetobacter baumannii infection Status: Acute (11) Carbapenem-resistant Acinetobacter baumannii infection Status: Acute (12) Osteomyelitis of sacrum Status: Acute
[2018-04-29] MEDS: Morphine 4 MG/ML VIAL IVP PRN ×5 (03:46→19:30)
--- NOTE | 2018-04-29 14:15 | CP.PCM.PN ---
Subjective - Date & Time of Evaluation Date of Evaluation: 04/29/18 Time of Evaluation: 14:15 - Subjective Subjective: PGY-[address] Nieves's Service Patient seen and examined at bedside. Per nursing no acute events occurred overnight. Patient reports some sacral pain today upon examination. Patient denies any fevers, chills, nausea, vomiting, chest pain, headaches, changes in vision, or any other complaints. Objective - Vital Signs/Intake and Output Vital Signs (last 24 hours): Temp Pulse Resp BP Pulse Ox 98.4 F 76 20 109/67 98 04/29/18 07:15 04/29/18 07:15 04/29/18 07:15 04/29/18 07:15 04/29/18 07:15 - Medications Medications: Current Medications Heparin Sodium (Porcine) (Heparin) 5,000 units SC Q12 [facility] Last Admin: 04/29/18 09:51 Dose: Not Given Tigecycline 50 mg/ Sodium (Chloride) 100 mls @ 100 mls/hr IVPB Q12H [facility] PRN Reason: Protocol Last Admin: 04/29/18 09:51 Dose: Not Given Tobramycin Sulfate 60 mg/ (Sodium Chloride) 101.5 mls @ 100 mls/hr IVPB Q24H [facility] PRN Reason: Protocol Last Admin: 04/28/18 13:43 Dose: 100 mls/hr Morphine Sulfate (Morphine) 6 mg IVP Q4H PRN PRN Reason: Pain, severe (8-10) Last Admin: 04/29/18 11:58 Dose: 6 mg - Labs Labs: 04/28/18 07:20 04/28/18 07:20 Assessment and Plan - Assessment and Plan (Free Text) Plan: Sacral Decubitus Ulcer Stable, Afebrile ID Consulted, Dr. Varghese - follow up recs * abx per ID * Patient likely has Osteomyelitis, will need total of 6 weeks of antibiotics * Tigecycline 50mg IVPB (started on 04/14) - End date 06/04/18 * Tobramycin 60mg IV q8h (started on 04/15) - End date 06/06/18 Surgery Consulted, Dr. Kim * Scheduled for OR today * Currently NPO CXR 04/11: Low lung volumes with mild crowded bronchovascular markings and minor bibasilar atelectasis. [id number] elevation of right hemidiaphragm could be due to eventration. Right IJ central venous line with tip in the right atrium. Sacral Wound Culture 04/11: grew 4 bacteria * E. Coli * Klebsiella Pneumoniae Ssp Pneu - ESBL * MRSA * Group G Strep Urine Culture 04/11: grew 2 bacteria * E. Coli * Beta hemolytic Strep group B Blood Cultures 04/12: Culture #1 * Acinetobacter Baumannii * Group G Strep Culture #2 * Acinetobacter Baumannii * Gram Positive Cocci --> most likely contamination * Group G Strep Repeat Blood cultures 04/17: no growth x 24 hours Wound Culture from OR 04/14: * Klebsiella Pneumoniae Ssp Pneu - ESBL * Proteus Mirabilis Wound Culture from OR 04/15: * Gram Neg Jean-Paul * Gram Neg Jean-Paul #2 * Gram Positive Cocci Procal (04/14): 17.24 Lactic Acid (04/12): 1.6 Patient is refusing echocardiogram repeatedly CT pelvis ordered, to rule out osteomyelitis of the sacrum Wound Care per Dr Kim, he will meet with wound care team on Saturday to assess wound and instruct care Anemia s/p * transfused one unit of pRBCs on 04/17 * transfused one unit of pRBCs on 04/15 * transfused 2units of pRBCs on 04/12 Hgb is 8.6 today (05/29/18) Continue to monitor Hypokalemia Resolved Continue to monitor Prophylactic Care Heparin 5,000units SC q12h Ambien 5mg PO HS prn Case discussed with Dr. Nieves All medical management per Dr. Nieves Dispo: Patient expected to be [facility] with IV Tigecycline and Tobramycin to be completed June 04 and June 06 Respectively. Flaquito Ferguson, PGY-2
[2018-04-30 00:20] VITALS: O2SAT 98
[2018-04-30] MEDS: Morphine 4 MG/ML VIAL IVP PRN ×3 (00:26→08:52)
--- NOTE | 2018-04-30 07:10 | CP.PCM.PN ---
Subjective - Date & Time of Evaluation Date of Evaluation: 04/30/18 Time of Evaluation: 07:08 - Subjective Subjective: PGY-[address] Nieves's Service Patient seen and examined at bedside. Per nursing no acute events occurred overnight. Patient refusing all A.M. lab work and IV antibiotics. Patient denies any complaints at this examination. Objective - Vital Signs/Intake and Output Vital Signs (last 24 hours): Temp Pulse Resp BP Pulse Ox 99.6 F 129 H 20 110/71 98 04/29/18 23:15 04/29/18 23:15 04/29/18 23:15 04/29/18 23:15 04/29/18 23:15 Intake and Output: 04/30/18 04/30/18 06:59 18:59 Intake Total 580 Balance 580 - Medications Medications: Current Medications Heparin Sodium (Porcine) (Heparin) 5,000 units SC Q12 [facility] Last Admin: 04/29/18 22:33 Dose: Not Given Tigecycline 50 mg/ Sodium (Chloride) 100 mls @ 100 mls/hr IVPB Q12H [facility] PRN Reason: Protocol Last Admin: 04/29/18 21:49 Dose: 100 mls/hr Tobramycin Sulfate 60 mg/ (Sodium Chloride) 101.5 mls @ 100 mls/hr IVPB Q24H [facility] PRN Reason: Protocol Last Admin: 04/29/18 14:21 Dose: 100 mls/hr Morphine Sulfate (Morphine) 6 mg IVP Q4H PRN PRN Reason: Pain, severe (8-10) Last Admin: 04/30/18 04:45 Dose: 6 mg - Labs Labs: 04/28/18 07:20 04/28/18 07:20 - Head Exam Head Exam: ATRAUMATIC, NORMAL INSPECTION, NORMOCEPHALIC - Eye Exam Eye Exam: EOMI, Normal appearance, PERRL Pupil Exam: NORMAL ACCOMODATION, PERRL. absent: Irregular, Unequal - ENT Exam ENT Exam: Mucous Membranes Moist, Normal Oropharynx - Respiratory Exam Respiratory Exam: Clear to Ausculation Bilateral, NORMAL BREATHING PATTERN. absent: Chest Wall Tenderness, Prolonged Expiratory Phase, Respiratory Distress - Cardiovascular Exam Cardiovascular Exam: REGULAR RHYTHM, +S1, +S2 - GI/Abdominal Exam GI & Abdominal Exam: Soft, Normal Bowel Sounds. absent: Rigid, Hyperactive Bowel Sounds - Extremities Exam Extremities Exam: Full ROM. absent: Joint Swelling, Pedal Edema, Tenderness - Back Exam Back Exam: NORMAL INSPECTION - Neurological Exam Neurological Exam: Alert, Awake, CN II-XII Intact, Normal Gait, Oriented x3 - Psychiatric Exam Psychiatric exam: Normal Affect, Normal Mood - Skin Skin Exam: Dry, Intact, Normal Color Assessment and Plan - Assessment and Plan (Free Text) Plan: Sacral Decubitus Ulcer Stable, Afebrile ID Consulted, Dr. Varghese - follow up recs * abx per ID * Patient likely has Osteomyelitis, will need total of 6 weeks of antibiotics * Tigecycline 50mg IVPB (started on 04/14) - End date 06/04/18 * Tobramycin 60mg IV q8h (started on 04/15) - End date 06/06/18 Surgery Consulted, Dr. Kim * Scheduled for OR today * Currently NPO CXR 04/11: Low lung volumes with mild crowded bronchovascular markings and minor bibasilar atelectasis. [id number] elevation of right hemidiaphragm could be due to eventration. Right IJ central venous line with tip in the right atrium. Sacral Wound Culture 04/11: grew 4 bacteria * E. Coli * Klebsiella Pneumoniae Ssp Pneu - ESBL * MRSA * Group G Strep Urine Culture 04/11: grew 2 bacteria * E. Coli * Beta hemolytic Strep group B Blood Cultures 04/12: Culture #1 * Acinetobacter Baumannii * Group G Strep Culture #2 * Acinetobacter Baumannii * Gram Positive Cocci --> most likely contamination * Group G Strep Repeat Blood cultures 04/17: no growth x 24 hours Wound Culture from OR 04/14: * Klebsiella Pneumoniae Ssp Pneu - ESBL * Proteus Mirabilis Wound Culture from OR 04/15: * Gram Neg Jean-Paul * Gram Neg Jean-Paul #2 * Gram Positive Cocci Procal (04/14): 17.24 Lactic Acid (04/12): 1.6 Patient is refusing echocardiogram repeatedly CT pelvis ordered, to rule out osteomyelitis of the sacrum Wound Care per Dr Kim, he will meet with wound care team on Saturday to assess wound and instruct care Anemia s/p * transfused one unit of pRBCs on 04/17 * transfused one unit of pRBCs on 04/15 * transfused 2units of pRBCs on 04/12 Hgb is 8.6 today (05/29/18) Continue to monitor Hypokalemia Resolved Continue to monitor Prophylactic Care Heparin 5,000units SC q12h Ambien 5mg PO HS prn Case discussed with Dr. Nieves All medical management per Dr. Nieves Dispo: [facility] Tigecycline and Tobramycin to be completed June 04 and June 06 Respectively. Flaquito Ferguson, PGY-2
[2018-04-30 08:15] VITALS: BP 106/72; PULSE 102; TEMP 98.4
--- NOTE | 2018-05-22 13:07 | DS ---
Copied To: Savita Nieves MD Attending MD: Savita Nieves MD The patient came to the hospital with a chief complaint of fever, chills, swelling of the back. The patient was found to have a large decub, started on IV antibiotic, debridement, transferred to the hospitalist service for IV antibiotic. IMPRESSION: Large wound of the buttock on the left side, paraplegia. Savita Nieves MD
== END 2018-04-30 11:23 | DRG 562 ==
LOC: C.ER 22:08 → C.9E 22:57 → C.6T 04-25 00:55
PROVIDERS: ADMIT Internal Medicine Pulmonary Disease; ATTEND Internal Medicine Pulmonary Disease
DX: L89.154 Pressure ulcer of sacral region, stage 4 (principal); A41.9 Sepsis, unspecified organism; L03.90 Cellulitis, unspecified; N39.0 Urinary tract infection, site not specified; G89.29 Other chronic pain; G82.20 Paraplegia, unspecified; M46.28 Osteomyelitis of vertebra, sacral and sacrococcygeal region; N50.89 Other specified disorders of the male genital organs; Z89.612 Acquired absence of left leg above knee; Z93.3 Colostomy status; Z88.0 Allergy status to penicillin